=== PATIENT | male | born 1960 | race Caucasian/White ===

== ENCOUNTER 2017-02-13 16:09 | Emergency (ER) | END 2017-02-13 18:34 | disposition home or self-care (01) ==

== ENCOUNTER 2017-05-03 05:36 | Day surgery (SDC) | END 2017-05-03 14:35 | disposition home or self-care (01) ==

== ENCOUNTER 2017-12-15 08:23 | Emergency (ER) | END 2017-12-15 10:22 | disposition home or self-care (01) ==

== ENCOUNTER 2017-12-16 14:52 | Emergency (ER) | END 2017-12-16 20:02 | disposition short-term general hospital (02) ==

== ENCOUNTER 2018-06-18 09:44 | Observation (INO) | payer OTHER ==
[~2018-06-18] VITALS: Ht 167.6 cm; Wt 81.1 kg
[2018-06-18] VITALS (24 sets, daily range): BP systolic 130–168; BP diastolic 66–94; PULSE 65–100; RESP 11–20; Ht 167.6 cm; Wt 81.1 kg
[~2018-06-18 09:44] MED LIST: CEFAZOLIN 2 GM/50 ML (PMX) 50 ML IVPB ONE; LACTATED RINGER'S 1,000 ML IV SCH; METF500T3 PO; SEVOFLURANE 15 MIN ONE; SIMV40TA2 PO; TRAM50TA PO
[2018-06-18] MEDS ORDERED: METF100010 PO (11:03)
[2018-06-18] MEDS ORDERED: ATOR40TA68 PO (11:04)
[2018-06-18] MEDS ORDERED: INSU100I33 SC (11:05)
[2018-06-18] MEDS ORDERED: SURGIFOAM POWDER 1 GM KIT ONE ×2 (11:46→17:04)
[2018-06-18] MEDS ORDERED: THROMBIN (BOVINE) 5,000 UNIT VIAL TP ONE (11:55)
--- NOTE | 2018-06-18 13:06 | HPN ---
Date/Time of Note Date/Time of Note DATE: 06/18/18 TIME: 13:06 Interval H&P Admission Note Pt. seen H&P reviewed: No system changes MARIZOL AMIN MD June 18, 2018 13:06
--- NOTE | 2018-06-18 13:36 | PREAC ---
Date/Time of Note Date/Time of Note DATE: 06/18/18 TIME: 13:36 Anesthesia Eval and Record Evaluation Time Pre-Procedure Interview DATE: 06/18/18 TIME: 13:36 Age 58 Sex male NPO: 8 hrs Preoperative diagnosis Lumbar ddd Planned procedure Lumbar laminectomy Past Medical History Past Medical History: Includes Cardio: Dyslipidemia Endo: Diabetes GI: Obesity Surgery & Anesthesia Issues No known issue Meds Anticoagulation: No Beta Natasha within 24 hr: No Reason Beta Natasha not given: Pt. not on B-Natasha Reported Medications Insulin Glargine,Hum.rec.anlog (Basaglar Kwikpen U-100) 100 Unit/1 Ml Insuln.pen, 15 UNIT SC QHS, EA 06/18/18 Atorvastatin* (Atorvastatin*) 40 Mg Tablet, 40 MG PO QHS, #30 TAB 06/18/18 Metformin Hcl* (Metformin Hcl*) 1,000 Mg Tablet, 1000 MG PO WITH BREAKFAST DINNE, #60 TAB 06/18/18 Discontinued Reported Medications Metformin Hcl* (Metformin Hcl* ER) 500 Mg Tab.sr.24h, 500 MG PO DAILY, #30 TAB 12/16/17 Simvastatin* (Zocor*) 40 Mg Tablet, 40 MG PO QHS, #30 TAB 12/16/17 Tramadol Hcl* (Ultram*) 50 Mg Tablet, 50 MG PO Q12, TAB 05/03/17 Current Medications Lactated Ringer's 1,000 ml @ 0 mls/hr Q0M IV Last administered on 06/18/18at 11:51; Admin Dose 0 MLS/HR; Start 06/18/18 at 07:00; Stop 06/18/18 at 16:00 Meds reviewed: Yes Allergies Coded Allergies: No Known Allergy (Unverified , 06/18/18) Allergies Reviewed: Yes Labs/Studies Labs Reviewed: Reviewed by anesthesiologist Blood Bank Test 06/18/18 11:20 Antibody Screen NEGATIVE Blood Type O POSITIVE test: N/A Studies: ECG Pre-procedure Exam Last vitals Vital Signs Date Temp Pulse Resp B/P (MAP) Pulse Ox O2 O2 Flow FiO2 Time Delivery Rate 06/18/18 97.3 65 18 130/86 99 Room Air 11:53 (101) Airway: Adequate mouth opening, Adequate thyromental dist Mallampati: Mallampati II Teeth: Normal Lung: Normal Heart: Normal ASA Physical Status ASA physical status: 3 Emergency: None Planned Anesthetic General/MAC: ETT Pre-operative Attestations Prior to commencing anesthesia and surgery, the patient was re-evaluated, there was verification of: *The patient's identity *The results of appropriate recent lab work and preoperative vital signs *The above evaluation not changing prior to induction *Anesthetic plan, risk benefits, alternative and complications discussed with patient/family; questions answered; patient/family understands, accepts and wishes to proceed. CEZAR ANDREW June 18, 2018 13:36
[2018-06-18] MEDS ORDERED: BUPIVACAINE 0.5%/EPI (SDV) 30 ML INJ ONE (13:42)
[2018-06-18] MEDS ORDERED: POLYMYXIN/BACITRACIN 1L IRRIG ONE (16:26)
[2018-06-18] MEDS ORDERED: GELATIN SIZE 100 SPONGE ONE (16:26)
[2018-06-18] MEDS ORDERED: THROMBIN 5000 UNIT VIAL TOP ONE ×2 (16:34→17:12)
[2018-06-18] MEDS ORDERED: ALBUTEROL 0.083% (NEB) 2.5 MG/3 ML AMP HHN PRN (17:00)
[2018-06-18] MEDS ORDERED: DIPHENHYDRAMINE 50 MG INJ IV PRN (17:00)
[2018-06-18] MEDS ORDERED: MEPERIDINE 25 MG INJ IV PRN (17:00)
[2018-06-18] MEDS ORDERED: HYDROmorphONE 1 MG/5 ML IV SYRINGE IV PRN ×2 (17:00)
[2018-06-18] MEDS ORDERED: ONDANSETRON 4 MG INJ IV PRN ×2 (17:00→18:00)
[2018-06-18] MEDS ORDERED: FENTAnyl 50 MCG/ML VIAL IV PRN ×3 (17:00)
[2018-06-18] MEDS ORDERED: METOCLOPRAMIDE 10 MG INJ IV PRN (17:00)
[2018-06-18] MEDS ORDERED: SOD CHLORIDE 0.45% 1,000 ML IV SCH (17:54)
--- NOTE | 2018-06-18 17:54 | OPR ---
Date/Time of Note Date/Time of Note DATE: 06/18/18 TIME: 17:44 Operative Report Free Text/Dictation DATE OF OPERATION: 06/18/2018 PREOPERATIVE DIAGNOSES: 1.L4-5 bilateral spinal stenosis with right greater than left sided radiculopathy and neurogenic claudication 2. L4-5 central recurrent disk herniation with Right greater than left sided radiculopathy POSTOPERATIVE DIAGNOSES: 1.L4-5 bilateral spinal stenosis with right greater than left sided radiculopathy and neurogenic claudication 2. L4-5 central recurrent disk herniation with Right greater than left sided radiculopathy 3. Durotomy OPERATION PERFORMED: 1. Revision Bilateral L4-5 partial laminectomy, medial facetectomy, and fora minotomy 2. L4-5 revision microdiskectomy 3. Repair of durotomy SURGEON: Marizol Amin MD METAL TRIMMER: Sridhar Lovell MD ANESTHESIA: General endotracheal ESTIMATED BLOOD LOSS: 100 mL SURGICAL INDICATION: The patient is a 58 year-old male who presents with an increasing history of bilateral right greater than left lower extremity pain with weakness. The patient was unable to ambulate significant distances secondary to their pain and weakness. The patient had failed conservative treatment. Risks, benefits, and alternatives to a revision L4-5 decompressive procedure with diskectomy including but not exclusive of risks of bleeding, infection, nerve injury, cauda equina syndrome, iatrogenic instability, dural tear, myocardial infarction, stroke, pulmonary embolism were explained to the patient, and she wished to proceed. DESCRIPTION OF TECHNIQUE: The patient was identified in the preoperative area and taken to the operating room. Rapid induction of general endotracheal anesthesia was performed. Patient was given 2 g of cefazolin for prophylaxis. The patient was then placed in the prone position on the axis table with all bony prominences well padded. The back was prepped and draped in usual sterile manner. A time out was held. Using a spinal needle and intraoperative fluoroscopy, the L4-5 level was clearly identified. The skin was injected using 0.5% Marcaine with epinephrine. Longitudinal midline incision was then created using a 10 blade. Further dissection through soft tissue was performed using electrocautery down to the bilateral L4 spinous processes. Dissection was taken down over the lamina and over the facet joint capsule. A self-retaining retractor was applied. Again, intraoperative fluoroscopy confirmed the level. The microscope was brought into use for microdissection. The high-speed bur was used to thin the caudal aspect of the biltaeral L4 lamina. Kerrison rongeurs were then used to resect the lamina, the small portion of the medial facet and the bone overlying the foramen. Ligamentum flavum was also resected using the Kerrison rongeurs. Care was taken to protect the thecal sac throughout the decompressive procedure. The dura was scarred and adherent to the hypertrophic ligamentum. During the decompressive procedure and durotomy was identified meausring 0.5mm x 0.5mm on the zabrina-lateral aspect of the right dura. This was repaired lateral repaired using a 1 cm x 1 cm piece of duragen and tisseal . The adherent dura was meticulously dissected of the disk space and medial retracted to the left. The central extruded disk fragment was noted. This was incised using a 15 bladed. The disk was taken to a astable base and all extruded fragments were removed using a series of pituitaries. No further extruded pieces were noted at the end of the procedure. Palpation with a ball-tip probe did not reveal any further stenosis in the central, subarticular, or foraminal areas. The exiting L4 nerve roots and traversing L5 nerve roots were both directly visualized and noted to be decompressed. The wound was irrigated copiously using normal saline. Meticulous attention was paid toward hemostasis using bipolar cautery, FloSeal, Gelfoam and thrombin. Care was taken to remove all FloSeal and Gelfoam and thrombin prior to wound closure. At the end of the case a valsalva to 40 mmHg did not reveal any leak. The durotomy site was reinforced w/ a 1inch x 1 inch duragen and tisseal sealant. The fascia was then closed using 1 Vicryl in interrupted fashion. Subcutaneous tissue was closed using 2-0 Vicryl in interrupted fashion. Skin was closed using a 3-0 nylon in a horizontal mattress fashion.. The wound was dressed using sterile 4x4 gauze and Tegaderm. The patient was returned to the supine position. They were extubated immediately postoperatively and taken to the recovery room in stable condition. Procedure Date: June 18, 2018 Preoperative Diagnosis 1.L4-5 bilateral spinal stenosis with right greater than left sided radiculopathy and neurogenic claudication 2. L4-5 central recurrent disk herniation with Right greater than left sided radiculopathy Postoperative Diagnosis 1.L4-5 bilateral spinal stenosis with right greater than left sided radiculopathy and neurogenic claudication 2. L4-5 central recurrent disk herniation with Right greater than left sided radiculopathy Operation/Procedure Performed 1. Revision Bilateral L4-5 partial laminectomy, medial facetectomy, and foraminotomy 2. L4-5 revision microdiskectomy 3. Repair of durotomy Surgeon see signature line Maternity Nurse Sridhar Lovell MD Anesthesia Type: general Estimated Blood Loss: none Transfusion none Specimen L4-5 disk Grafts/Implants none Complications none Pt Condition Post Procedure: stable Disposition: PACU Procedure Description DESCRIPTION OF TECHNIQUE: The patient was identified in the preoperative area and taken to the operating room. Rapid induction of general endotracheal anesthesia was performed. Patient was given 2 g of cefazolin for prophylaxis. The patient was then placed in the prone position on the axis table with all bony prominences well padded. The back was prepped and draped in usual sterile manner. A time out was held. Using a spinal needle and intraoperative fluoroscopy, the L4-5 level was clearly identified. The skin was injected using 0.5% Marcaine with epinephrine. Longitudinal midline incision was then created using a 10 blade. Further dissection through soft tissue was performed using electrocautery down to the bilateral L4 spinous processes. Dissection was taken down over the lamina and over the facet joint capsule. A self-retaining retractor was applied. Again, intraoperative fluoroscopy confirmed the level. The microscope was brought into use for microdissection. The high-speed bur was used to thin the caudal aspect of the biltaeral L4 lamina. Kerrison rongeurs were then used to resect the lamina, the small portion of the medial facet and the bone overlying the foramen. Ligamentum flavum was also resected using the Kerrison rongeurs. Care was taken to protect the thecal sac throughout the decompressive procedure. The dura was scarred and adherent to the hypertrophic ligamentum. During the decompressive procedure and durotomy was identified meausring 0.5mm x 0.5mm on the zabrina-lateral aspect of the right dura. This was repaired lateral repaired using a 1 cm x 1 cm piece of duragen and tisseal . The adherent dura was meticulously dissected of the disk space and medial retracted to the left. The central extruded disk fragment was noted. This was incised using a 15 bladed. The disk was taken to a astable base and all extruded fragments were removed using a series of pituitaries. No further extruded pieces were noted at the end of the procedure. Palpation with a ball-tip probe did not reveal any further stenosis in the central, subarticular, or foraminal areas. The exiting L4 nerve roots and traversing L5 nerve roots were both directly visualized and noted to be decompressed. The wound was irrigated copiously using normal saline. Meticulous attention was paid toward hemostasis using bipolar cautery, FloSeal, Gelfoam and thrombin. Care was taken to remove all FloSeal and Gelfoam and thrombin prior to wound closure. At the end of the case a valsalva to 40 mmHg did not reveal any leak. The durotomy site was reinforced w/ a 1inch x 1 inch duragen and tisseal sealant. The fascia was then closed using 1 Vicryl in interrupted fashion. Subcutaneous tissue was closed using 2-0 Vicryl in interrupted fashion. Skin was closed using a 3-0 nylon in a horizontal mattress fashion.. The wound was dressed using sterile 4x4 gauze and Tegaderm. The patient was returned to the supine position. They were extubated immed iately postoperatively and taken to the recovery room in stable condition. MARIZOL AMIN MD June 18, 2018 17:54
[2018-06-18] MEDS ORDERED: PROCHLORPERAZINE 10 MG TAB PO PRN (18:00)
[2018-06-18] MEDS ORDERED: NALOXONE (0.4 MG/ML) INJ IV PRN (18:00)
[2018-06-18] MEDS ORDERED: AL HYDROX/MG HYDROX/SIMETH 30 ML CUP PO PRN (18:00)
[2018-06-18] MEDS ORDERED: HYDROmorphONE 0.2 MG/ML PCA IV SCH (18:00)
[2018-06-18] MEDS ORDERED: ACETAMINOPHEN 1000MG/100ML IV 100 ML IVPB ONE (18:00)
[2018-06-18] MEDS ORDERED: NACL 0.9% 3 ML SYG IV SCH (18:00)
[2018-06-18] MEDS ORDERED: HYDROCODONE/APAP (5/325) TAB PO PRN ×2 (18:00)
[2018-06-18] MEDS ORDERED: ACETAMINOPHEN 325 MG TAB PO PRN (18:00)
[2018-06-18] MEDS: CEFAZOLIN 1 GM/50 ML (PMX) 50 ML IVPB SCH ×2 (18:33→23:34)
[2018-06-18] MEDS: SOD CHLORIDE 0.9% 1,000 ML IV SCH (18:37)
[2018-06-18] MEDS: HYDROmorphONE 1 MG/5 ML IV SYRINGE IV PRN ×2 (18:51→19:01)
[2018-06-18] MEDS ORDERED: GLUCAGON 1 MG INJ IM PRN (19:00)
[2018-06-18] MEDS ORDERED: GLUCOSE GEL 15 GRAM TUBE BUCCAL PRN (19:00)
[2018-06-18] MEDS ORDERED: GLUCOSE GEL 15 GRAM TUBE PO PRN ×2 (19:00)
[2018-06-18] MEDS ORDERED: DEXTROSE 50% 50 ML SYRINGE IV PRN ×2 (19:00)
--- NOTE | 2018-06-18 19:12 | CONS ---
DATE OF ADMISSION: 06/18/2018 DATE OF CONSULTATION: 06/18/2018 TYPE OF CONSULTATION: Postoperative medical. Thank you very much for allowing me to evaluate the above patient who just underwent lumbar back surg vangie. HISTORICAL EVENTS: As you well know, this patient had low back pain in excess of 3 years, having had prior back surgery and a revision was thought necessary because of continued pain because of evidenc e of a recurrent large L4 to L5 central herniated nucleus pulposus and related radiculopathy. The coco linares was transferred just now from the OR to recovery and he is somnolent. PAST MEDICAL HISTORY: Includes diabetes, hyperlipidemia, depression, chronic back pain as well as ca taracts with vitamin D deficiency. FAMILY HISTORY: Positive for diabetes and hypertension. MEDICATIONS PRIOR TO ADMISSION: 1. Sertraline 50 mg per day. 2. Aspirin 81 mg per day. 3. Meloxicam 15 mg per day. 4. Metformin 1000 mg b.i.d. 5. Atorvastatin 40 mg per day. 6. Gabapentin 300 mg t.i.d. ALLERGIES: NONE. PHYSICAL EXAMINATION: GENERAL: Comfortable appearing male in no acute distress. VITAL SIGNS: BP 118/78, pulse 72, respirations were 18. He was afebrile. HEENT: Eyes: Extraocular muscles were full. NECK: No JVD. LUNGS: Clear. HEART: Rhythm regular. ABDOMEN: Nontender, nondistended. EXTREMITIES: No extremity edema. IMPRESSION: 1. Stable postop lumbar back surgery. 2. History of diabetes. We will follow sugars every 6 hours and cover with short-acting insulin. 3. Hyperlipidemia. We will resume statin. 4. We will follow daily and observe symptoms of thromboembolic disease. Dictated By: NATALI CANALES/BLAYNE Conf#: [id number] DID#: [id number] CC: MARIZOL AMIN MD;*EndCC*
[2018-06-18] MEDS ORDERED: LABETALOL HCL 20MG INJ IV ONE (19:30)
[2018-06-18] MEDS: ATORVASTATIN 40 MG TAB PO SCH (21:00)
[2018-06-19] MEDS ORDERED: SUCCINYLCHOLINE CHLORIDE 100 MG/5 ML SYG IV ONE (00:10)
[2018-06-19] MEDS ORDERED: LIDOCAINE 100 MG SYRINGE ONE (00:10)
[2018-06-19] MEDS ORDERED: CEFAZOLIN 1 GM INJ ONE (00:10)
[2018-06-19] MEDS ORDERED: ROCURONIUM 50 MG INJ ONE (00:10)
[2018-06-19] MEDS ORDERED: SUGAMMADEX SODIUM 200 MG/2 ML VIAL IV ONE (00:10)
[2018-06-19] MEDS ORDERED: FENTAnyl 50 MCG/ML VIAL ONE ×2 (00:10)
[2018-06-19] MEDS ORDERED: PROPOFOL 20 ML ONE (00:10)
[2018-06-19 00:36] VITALS: BP 139/65; PULSE 86; RESP 17
[2018-06-19 04:20] VITALS: BP 142/74; PULSE 86; RESP 18
[2018-06-19] MEDS: CEFAZOLIN 1 GM/50 ML (PMX) 50 ML IVPB SCH ×2 (05:29→12:46)
[2018-06-19] MEDS: SOD CHLORIDE 0.9% 1,000 ML IV SCH ×3 (05:31→21:46)
[2018-06-19 08:00] VITALS: BP 130/63; PULSE 87; RESP 18
[2018-06-19] MEDS ORDERED: HYDROmorphONE 0.2 MG/ML PCA IV SCH (08:00)
--- NOTE | 2018-06-19 08:32 | PAC ---
Date/Time of Note Date/Time of Note DATE: 06/19/18 TIME: 08:32 Post-Anesthesia Notes Post-Anesthesia Note Last documented vital signs Vital Signs Date Temp Pulse Resp B/P (MAP) Pulse Ox O2 O2 Flow FiO2 Time Delivery Rate 06/19/18 98.0 87 18 130/63 95 Room Air 08:00 (85) 06/18/18 8.0 18:04 Activity: WNL Respiratory function: WNL Cardiovascular function: WNL Mental status: Baseline Pain reasonably controlled: Yes Hydration appropriate: Yes Nausea/Vomiting absent: Yes CEZAR ANDREW June 19, 2018 08:32
[2018-06-19] MEDS: metFORMIN 500 MG TAB PO SCH ×2 (08:38→18:05)
[2018-06-19] MEDS: DOCUSATE SODIUM 100 MG CAP PO SCH ×2 (08:38→20:08)
[2018-06-19] MEDS: INSULIN ASPART [NOVOLOG] 3 ML PEN SC SCH ×3 (08:50→18:05)
--- NOTE | 2018-06-19 09:48 | CONS ---
Assessment/Plan Assessment/Plan Assessment/Plan (Daily) 1. Doing well post op lumbar back surgery. 2. HERNANDEZ related to dural tear ? 3. DM, control is excellent 4. Low Mag, will replete Consultation Date/Type/Reason Admit Date/Time June 18, 2018 at 19:19 Initial Consult Date Date/Time of Note DATE: 06/19/18 TIME: 09:47 Detailed Summary Respiratory: No cough, No shortness of breath Cardiovascular: No chest pain Gastrointestinal: no complaints Genitourinary: other (sams in place) Musculoskeletal: back pain (mod) Neurologic: headache, other Exam/Review of Systems Exam Vitals Vital Signs Date Temp Pulse Resp B/P (MAP) Pulse Ox O2 O2 Flow FiO2 Time Delivery Rate 06/19/18 98.0 87 18 130/63 95 Room Air 08:00 (85) 06/18/18 8.0 18:04 Intake and Output 06/18/18 06/18/18 06/19/18 1515:00 23:00 07:00 IntakeIntake Total 1800 ml 150 ml 50 ml OutputOutput Total 580 ml 1200 ml BalanceBalance 1800 ml -430 ml -1150 ml Neck: No jvd Respiratory: clear to auscultation Cardiovascular: regular rate and rhythm Gastrointestinal: soft Neurological: No focal weakness Results Result Diagram: 06/19/18 0453 06/19/18 0453 Results 24hrs Laboratory Tests Test 06/18/18 11:02 06/18/18 18:09 06/19/18 04:53 06/19/18 07:21 Bedside Glucose 164 197 Hemoglobin 11.9 L Hematocrit 36.0 L Sodium Level 139 Potassium Level 4.2 Chloride Level 107 Carbon Dioxide 23 Level Anion Gap 9 Blood Urea 11 Nitrogen Creatinine 0.65 Est Glomerular > 60 Filtrat Rate mL/min Glucose Level 215 Calcium Level 8.2 L Phosphorus Level 4.2 Magnesium Level 1.4 L Lab Scanned Report REFERENCE LAB Test 06/19/18 08:37 Bedside Glucose 178 Medications Medication Current Medications Acetaminophen/ Hydrocodone Bitart ([place] (5/325)) 1 tab Q4H PRN PO .PAIN 1-5; Start 06/18/18 at 18:00 Acetaminophen/ Hydrocodone Bitart ([place] (5/325)) 2 tab Q4H PRN PO .PAIN 6-10; Start 06/18/18 at 18:00 Cefazolin Sodium 50 ml @ 100 mls/hr Q6 IVPB Last administered on 06/19/18at 05:29; Admin Dose 100 MLS/HR; Start 06/18/18 at 18:00; Stop 06/19/18 at 12:29 Prochlorperazine (Compazine) 10 mg Q4H PRN PO NAUSEA/VOMITING; Start 06/18/18 at 18:00 Ondansetron HCl (Zofran Inj) 4 mg Q6H PRN IV NAUSEA/VOMITING; Start 06/18/18 at 18:00 Al Hydrox/Mg Hydrox/Simethicone (Mag-Al Plus) 15 ml Q4H PRN PO .CONSTIPATION; Start 06/18/18 at 18:00 Docusate Sodium (Colace) 100 mg BID PO Last administered on 06/19/18at 08:38; Admin Dose 100 MG; Start 06/19/18 at 09:00 Acetaminophen (Tylenol Tab) 650 mg Q4H PRN PO TEMP GREATER THAN 101F OR HERNANDEZ Last administered on 06/19/18at 08:36; Admin Dose 650 MG; Start 06/18/18 at 18:00 IV Flush (NS 3 ml) 3 ml PER PROTOCOL IV ; Start 06/18/18 at 18:00 Naloxone HCl (Narcan) 0.2 mg Q2M PRN IV RR 8 BREATHS/MIN OR LESS; Start 06/18/18 at 18:00 Sodium Chloride 1,000 ml @ 100 mls/hr Q10H IV Last administered on 06/19/18at 05:31; Admin Dose 100 MLS/HR; Start 06/18/18 at 18:30 Atorvastatin Calcium (Lipitor) 40 mg QHS PO ; Start 06/18/18 at 21:00 Metformin HCl (Glucophage) 1,000 mg WITH BREAKFAST DINNE PO Last administered on 06/19/18at 08:38; Admin Dose 1,000 MG; Start 06/19/18 at 07:50 Insulin Aspart (Novolog Insulin Pen) NOVOLOG *MILD* ALGORITHM AC MEALS SC Last administered on 06/19/18at 08:50; Admin Dose 1 UNIT; Start 06/19/18 at 07:00 Miscellaneous Information 1 ea NOTE XX ; Start 06/18/18 at 19:00 Glucose (Glutose) 15 gm Q15M PRN PO DECREASED GLUCOSE; Start 06/18/18 at 19:00 Glucose (Glutose) 22.5 gm Q15M PRN PO DECREASED GLUCOSE; Start 06/18/18 at 19:00 Dextrose (D50w Syringe) 25 ml Q15M PRN IV DECREASED GLUCOSE; Start 06/18/18 at 19:00 Dextrose (D50w Syringe) 50 ml Q15M PRN IV DECREASED GLUCOSE; Start 06/18/18 at 19:00 Glucagon (Glucagen) 1 mg Q15M PRN IM DECREASED GLUCOSE; Start 06/18/18 at 19:00 Glucose (Glutose) 15 gm Q15M PRN BUCCAL DECREASED GLUCOSE; Start 06/18/18 at 19:00 Hydromorphone HCl (Dilaudid HOSPICE REGISTERED NURSE) Q4PCA IV Last administered on 06/19/18at 08:51; Admin Dose 6 MG; Start 06/19/18 at 08:00 NATALI LEONG MD June 19, 2018 09:48
[2018-06-19] MEDS ORDERED: MAGNESIUM SULFATE 3 GM in DEXTROSE 5% 100 ML IVPB ONE (11:00)
--- NOTE | 2018-06-19 12:24 | CONS ---
Consultation Date/Type/Reason Admit Date/Time June 18, 2018 at 19:19 Initial Consult Date Date/Time of Note DATE: 06/19/18 TIME: 12:21 24 HR Interval Summary Free Text/Dictation S: 58 yo Male POD#1 s/p L4-5 decompression w/ diskectomy complicated by dural tear s/p repair. No acute events over nigh. Pain controlled w/ RECORD SYSTEMS ANALYST. O: Vital Signs Date Temp Pulse Resp B/P (MAP) Pulse Ox O2 O2 Flow FiO2 Time Delivery Rate 06/19/18 98.0 87 18 130/63 95 Room Air 08:00 (85) 06/18/18 8.0 18:04 Gen: AAOx3, NAD Spine: 5/5 b/l TA/GS/EHL, +Seno[place] L3-S1. Dressing C/D/I A/P:58 yo Male POD#1 s/p L4-5 decompression w/ diskectomy complicated by dural tear s/p repair. 1. d/c RECORD SYSTEMS ANALYST 2. start PO [place] 3. OOB w/ PT today at 2 pm 4. D/C sams if cleared by PT 5. Possible d/c home tomorrow 6. appreciate med recs Exam/Review of Systems Exam Vitals Vital Signs Date Temp Pulse Resp B/P (MAP) Pulse Ox O2 O2 Flow FiO2 Time Delivery Rate 06/19/18 98.0 87 18 130/63 95 Room Air 08:00 (85) 06/18/18 8.0 18:04 Intake and Output 06/18/18 06/18/18 06/19/18 1414:59 22:59 06:59 IntakeIntake Total 1800 ml 150 ml 50 ml OutputOutput Total 580 ml 1200 ml BalanceBalance 1800 ml -430 ml -1150 ml Results Result Diagram: 06/19/18 0453 06/19/18 0453 Results 24hrs Laboratory Tests Test 06/18/18 18:09 06/19/18 04:53 06/19/18 07:21 06/19/18 08:37 Bedside Glucose 197 178 Hemoglobin 11.9 L Hematocrit 36.0 L Sodium Level 139 Potassium Level 4.2 Chloride Level 107 Carbon Dioxide 23 Level Anion Gap 9 Blood Urea 11 Nitrogen Creatinine 0.65 Est Glomerular > 60 Filtrat Rate mL/min Glucose Level 215 Calcium Level 8.2 L Phosphorus Level 4.2 Magnesium Level 1.4 L Lab Scanned Report REFERENCE LAB Medications Medication Current Medications Acetaminophen/ Hydrocodone Bitart ([place] (5/325)) 1 tab Q4H PRN PO .PAIN 1-5; Start 06/18/18 at 18:00 Acetaminophen/ Hydrocodone Bitart ([place] (5/325)) 2 tab Q4H PRN PO .PAIN 6-10; Start 06/18/18 at 18:00 Cefazolin Sodium 50 ml @ 100 mls/hr Q6 IVPB Last administered on 06/19/18at 05:29; Admin Dose 100 MLS/HR; Start 06/18/18 at 18:00; Stop 06/19/18 at 12:29 Prochlorperazine (Compazine) 10 mg Q4H PRN PO NAUSEA/VOMITING; Start 06/18/18 at 18:00 Ondansetron HCl (Zofran Inj) 4 mg Q6H PRN IV NAUSEA/VOMITING Last administered on 06/19/18at 09:57; Admin Dose 4 MG; Start 06/18/18 at 18:00 Al Hydrox/Mg Hydrox/Simethicone (Mag-Al Plus) 15 ml Q4H PRN PO .CONSTIPATION; Start 06/18/18 at 18:00 Docusate Sodium (Colace) 100 mg BID PO Last administered on 06/19/18at 08:38; Admin Dose 100 MG; Start 06/19/18 at 09:00 Acetaminophen (Tylenol Tab) 650 mg Q4H PRN PO TEMP GREATER THAN 101F OR HERNANDEZ Last administered on 06/19/18at 08:36; Admin Dose 650 MG; Start 06/18/18 at 18:00 IV Flush (NS 3 ml) 3 ml PER PROTOCOL IV ; Start 06/18/18 at 18:00 Naloxone HCl (Narcan) 0.2 mg Q2M PRN IV RR 8 BREATHS/MIN OR LESS; Start 06/18/18 at 18:00 Sodium Chloride 1,000 ml @ 75 mls/hr [id number] IV Last administered on 06/19/18at 05:31; Admin Dose 100 MLS/HR; Start 06/18/18 at 18:30 Atorvastatin Calcium (Lipitor) 40 mg QHS PO ; Start 06/18/18 at 21:00 Metformin HCl (Glucophage) 1,000 mg WITH BREAKFAST DINNE PO Last administered on 06/19/18at 08:38; Admin Dose 1,000 MG; Start 06/19/18 at 07:50 Insulin Aspart (Novolog Insulin Pen) NOVOLOG *MILD* ALGORITHM AC MEALS SC Last administered on 06/19/18at 08:50; Admin Dose 1 UNIT; Start 06/19/18 at 07:00 Miscellaneous Information 1 ea NOTE XX ; Start 06/18/18 at 19:00 Glucose (Glutose) 15 gm Q15M PRN PO DECREASED GLUCOSE; Start 06/18/18 at 19:00 Glucose (Glutose) 22.5 gm Q15M PRN PO DECREASED GLUCOSE; Start 06/18/18 at 19:00 Dextrose (D50w Syringe) 25 ml Q15M PRN IV DECREASED GLUCOSE; Start 06/18/18 at 19:00 Dextrose (D50w Syringe) 50 ml Q15M PRN IV DECREASED GLUCOSE; Start 06/18/18 at 19:00 Glucagon (Glucagen) 1 mg Q15M PRN IM DECREASED GLUCOSE; Start 06/18/18 at 19:00 Glucose (Glutose) 15 gm Q15M PRN BUCCAL DECREASED GLUCOSE; Start 06/18/18 at 19:00 Hydromorphone HCl (Dilaudid RECORD SYSTEMS ANALYST) Q4PCA IV Last administered on 06/19/18at 08:51; Admin Dose 6 MG; Start 06/19/18 at 08:00 Magnesium Sulfate 3 gm/Dextrose 106 ml @ 35.333 mls/ hr ONCE ONCE IVPB ; Start 06/19/18 at 11:00; Stop 06/19/18 at 13:59 MARIZOL AMIN MD June 19, 2018 12:24
--- NOTE | 2018-06-19 12:25 | PDOCDIS ---
Discharge Instructions CONDITION [id number] Patient Condition: [id number] Good HOME CARE INSTRUCTIONS: [id number] Diet Instructions: [id number] Regular ACTIVITY: [id number] Activity Restrictions: [id number] Avoid heavy lifting [id number] Bathing Restrictions: [id number] Shower FOLLOW UP/APPOINTMENTS Follow-up Plan Follow-up w/ Dr. Amin in 2 weeks MARIZOL AMIN MD June 19, 2018 12:25
[2018-06-19] MEDS ORDERED: CAFFEINE 200 MG TABLET PO PRN (13:30)
[2018-06-19 14:38] VITALS: BP 142/71; PULSE 80; RESP 18
[2018-06-19] MEDS ORDERED: ACETAMINOPHEN 1000MG/100ML IV 100 ML IVPB ONE (17:30)
[2018-06-19 19:18] VITALS: BP 147/70; PULSE 65; PULSE 86; RESP 18
[2018-06-19] MEDS ORDERED: CEFAZOLIN 2 GM/50 ML (PMX) 50 ML IVPB ONE (19:30)
[2018-06-19] MEDS: ATORVASTATIN 40 MG TAB PO SCH (20:08)
[2018-06-20 01:20] VITALS: BP 150/69; PULSE 68; RESP 18
[2018-06-20] MEDS: SOD CHLORIDE 0.9% 1,000 ML IV SCH ×2 (04:42→10:46)
[2018-06-20 07:05] VITALS: BP 166/84; PULSE 97; RESP 18
--- NOTE | 2018-06-20 08:12 | CONS ---
Assessment/Plan Assessment/Plan Assessment/Plan (Daily) 1. Doing well post op lumbar back surgery 2. HERNANDEZ has resolved 3. BP sl inc, will start catapres 4. Sl inc wbc, u/a and cult ordered, sams should be removed today Consultation Date/Type/Reason Admit Date/Time June 18, 2018 at 19:19 Initial Consult Date Date/Time of Note DATE: 06/20/18 TIME: 08:10 Detailed Summary Respiratory: No cough, No shortness of breath Cardiovascular: No chest pain, No orthopenea Gastrointestinal: other (bloated without n or v) Genitourinary: other (sams in place) Musculoskeletal: back pain (mild) Neurologic: No headache Exam/Review of Systems Exam Vitals Vital Signs Date Temp Pulse Resp B/P (MAP) Pulse Ox O2 O2 Flow FiO2 Time Delivery Rate 06/20/18 98.4 97 18 166/84 95 Room Air 07:05 (111) 06/18/18 8.0 18:04 Intake and Output 06/19/18 06/19/18 06/20/18 1515:00 23:00 07:00 IntakeIntake Total 490 ml 2746 ml 2200 ml OutputOutput Total 3400 ml 3500 ml BalanceBalance 490 ml -654 ml -1300 ml Neck: No jvd Respiratory: clear to auscultation Cardiovascular: regular rate and rhythm Gastrointestinal: soft Extremities: No calf tenderness, No edema Results Result Diagram: 06/20/18 0437 06/20/18 0437 Results 24hrs Laboratory Tests Test 06/19/18 08:37 06/19/18 12:58 06/19/18 17:56 06/20/18 01:54 Bedside Glucose 178 216 172 175 Test 06/20/18 04:37 White Blood Count 14.7 H Red Blood Count 4.01 L Hemoglobin 12.1 L Hematocrit 36.8 L Mean Corpuscular 91.8 Volume Mean Corpuscular 30.2 Hemoglobin Mean Corpuscular 32.9 Hemoglobin Concent Red Cell 13.1 Distribution Width Platelet Count 190 Mean Platelet Volume 11.1 H Immature 0.500 H Granulocytes % Neutrophils % 79.4 H Lymphocytes % 11.4 L Monocytes % 8.3 Eosinophils % 0.1 Basophils % 0.3 Nucleated Red Blood 0.0 Cells % Immature 0.070 H Granulocytes # Neutrophils # 11.7 H Lymphocytes # 1.7 Monocytes # 1.2 H Eosinophils # 0.0 Basophils # 0.0 Nucleated Red Blood 0.0 Cells # Sodium Level 139 Potassium Level 3.9 Chloride Level 102 Carbon Dioxide Level 29 Anion Gap 8 Blood Urea Nitrogen 8 Creatinine 0.75 Est Glomerular > 60 Filtrat Rate mL/min Glucose Level 239 H Calcium Level 8.8 Phosphorus Level 1.6 #L Magnesium Level 2.2 Medications Medication Current Medications Acetaminophen/ Hydrocodone Bitart ([place] (5/325)) 1 tab Q4H PRN PO .PAIN 1-5 Last administered on 06/19/18 15:26; Admin Dose 1 TAB; Start 06/18/18 at 18:00 Acetaminophen/ Hydrocodone Bitart ([place] (5/325)) 2 tab Q4H PRN PO .PAIN 6-10; Start 06/18/18 at 18:00 Prochlorperazine (Compazine) 10 mg Q4H PRN PO NAUSEA/VOMITING; Start 06/18/18 at 18:00 Ondansetron HCl (Zofran Inj) 4 mg Q6H PRN IV NAUSEA/VOMITING Last administered on 06/19/18 09:57; Admin Dose 4 MG; Start 06/18/18 at 18:00 Al Hydrox/Mg Hydrox/Simethicone (Mag-Al Plus) 15 ml Q4H PRN PO .CONSTIPATION Last administered on 06/20/18 02:16; Admin Dose 15 ML; Start 06/18/18 at 18:00 Docusate Sodium (Colace) 100 mg BID PO Last administered on 06/19/18 20:08; Admin Dose 100 MG; Start 06/19/18 at 09:00 Acetaminophen (Tylenol Tab) 650 mg Q4H PRN PO TEMP GREATER THAN 101F OR HERNANDEZ Last administered on 06/19/18 08:36; Admin Dose 650 MG; Start 06/18/18 at 18:00 IV Flush (NS 3 ml) 3 ml PER PROTOCOL IV ; Start 06/18/18 at 18:00 Naloxone HCl (Narcan) 0.2 mg Q2M PRN IV RR 8 BREATHS/MIN OR LESS; Start 06/18/18 at 18:00 Sodium Chloride 1,000 ml @ 150 mls/hr Q6H40M IV Last administered on 06/20/18 04:42; Admin Dose 150 MLS/HR; Start 06/18/18 at 18:30 Atorvastatin Calcium (Lipitor) 40 mg QHS PO Last administered on 06/19/18at 20:08; Admin Dose 40 MG; Start 06/18/18 at 21:00 Metformin HCl (Glucophage) 1,000 mg WITH BREAKFAST DINNE PO Last administered on 06/19/18at 18:05; Admin Dose 1,000 MG; Start 06/19/18 at 07:50 Insulin Aspart (Novolog Insulin Pen) NOVOLOG *MILD* ALGORITHM AC MEALS SC Last administered on 06/19/18at 18:05; Admin Dose 1 UNIT; Start 06/19/18 at 07:00 Miscellaneous Information 1 ea NOTE XX ; Start 06/18/18 at 19:00 Glucose (Glutose) 15 gm Q15M PRN PO DECREASED GLUCOSE; Start 06/18/18 at 19:00 Glucose (Glutose) 22.5 gm Q15M PRN PO DECREASED GLUCOSE; Start 06/18/18 at 19:00 Dextrose (D50w Syringe) 25 ml Q15M PRN IV DECREASED GLUCOSE; Start 06/18/18 at 19:00 Dextrose (D50w Syringe) 50 ml Q15M PRN IV DECREASED GLUCOSE; Start 06/18/18 at 19:00 Glucagon (Glucagen) 1 mg Q15M PRN IM DECREASED GLUCOSE; Start 06/18/18 at 19:00 Glucose (Glutose) 15 gm Q15M PRN BUCCAL DECREASED GLUCOSE; Start 06/18/18 at 19:00 Caffeine (Alertness Aid) 200 mg DAILY PRN PO HEADACHE Last administered on 06/19/18at 18:05; Admin Dose 200 MG; Start 06/19/18 at 13:30 NATALI LEONG MD June 20, 2018 08:12
[2018-06-20] MEDS ORDERED: POTASSIUM PHOSPHATE 20 MEQ in SOD CHLORIDE 0.9% 250 ML IVPB ONE (09:00)
[2018-06-20] MEDS: INSULIN ASPART [NOVOLOG] 3 ML PEN SC SCH ×2 (09:36→13:57)
[2018-06-20] MEDS: DOCUSATE SODIUM 100 MG CAP PO SCH (09:37)
[2018-06-20 09:40] VITALS: BP 133/80; PULSE 97; RESP 20
[2018-06-20] MEDS: metFORMIN 500 MG TAB PO SCH (09:44)
== END 2018-06-20 16:50 | disposition home or self-care (01) ==
LOC: SDS 09:44 → EDSTATUS 12:30 → MS1 19:19 → SDS 19:19 → MS1 20:22
PROVIDERS: ADMIT Orthopaedic Surgery; ATTEND Orthopaedic Surgery
DX: M48.062 Spinal stenosis, lumbar region with neurogenic claudication (principal); M51.16 Intervertebral disc disorders with radiculopathy, lumbar region; E78.5 Hyperlipidemia, unspecified; E11.9 Type 2 diabetes mellitus without complications; E66.9 Obesity, unspecified; Z68.28 Body mass index [BMI] 28.0-28.9, adult; Z79.82 Long term (current) use of aspirin; Z79.84 Long term (current) use of oral hypoglycemic drugs
CPT/HCPCS: 63030; 72100; 80048; 81001; 82962; 83735; 84100; 85014; 85018; 85025; 86850; 86900; 86901; 87086; 88304; 97116; 97161; J0131; J0690; J1170; J1815; J2001; J2175; J2405; J3010; J3475; J7030; J7050; Z7500; Z7512; Z7610; G0378

== ENCOUNTER 2018-09-07 05:54 | Day surgery (SDC) | payer OTHER ==
[~2018-09-07] VITALS: Ht 170.2 cm; Wt 81.2 kg
[~2018-09-07 05:54] MED LIST changes: +ASPI-817 PO; +ATOR40TA68 PO; -CEFAZOLIN 2 GM/50 ML (PMX) 50 ML IVPB ONE; +INSU100I12 SQ; +INSU100I33 SC; -LACTATED RINGER'S 1,000 ML IV SCH; +METF100010 PO; -METF500T3 PO; +PANT40TA3 PO; -SEVOFLURANE 15 MIN ONE; -SIMV40TA2 PO; -TRAM50TA PO
[2018-09-07 06:59] VITALS: Ht 170.2 cm; Wt 81.2 kg
[2018-09-07 07:20] VITALS: BP 135/78; PULSE 52; RESP 20
[2018-09-07] MEDS ORDERED: PROPOFOL 20 ML ONE (07:46)
[2018-09-07] MEDS ORDERED: LIDOCAINE 2% (SDV) 5 ML INJ ONE (07:46)
[2018-09-07] MEDS ORDERED: MIDAZOLAM 1 MG/ML 2 ML INJ ONE (07:46)
--- NOTE | 2018-09-07 07:51 | PREAC ---
Date/Time of Note Date/Time of Note DATE: 09/07/18 TIME: 07:47 Anesthesia Eval and Record Evaluation Time Pre-Procedure Interview DATE: 09/07/18 TIME: 07:47 Age 58 Sex male NPO: 8 hrs Preoperative diagnosis colonoscopy Planned procedure hx of colon polyps Past Medical History Past Medical History: Includes Cardio: Dyslipidemia Endo: Diabetes Surgery & Anesthesia Issues No known issue Meds Anticoagulation: No Beta Natasha within 24 hr: No Reason Beta Natasha not given: Pt. not on B-Natasha Reported Medications Insulin Glargine,Hum.rec.anlog (Basaglar Kwikpen U-100) 100 Unit/1 Ml Insuln.pen, 15 UNIT SC QHS, EA 06/18/18 Atorvastatin* (Atorvastatin*) 40 Mg Tablet, 40 MG PO QHS, #30 TAB 06/18/18 Metformin Hcl* (Metformin Hcl*) 1,000 Mg Tablet, 1000 MG PO WITH BREAKFAST DINNE, #60 TAB 06/18/18 Meds reviewed: Yes Allergies Coded Allergies: No Known Allergy (Unverified , 06/18/18) Allergies Reviewed: Yes Labs/Studies Labs Reviewed: Reviewed by anesthesiologist test: N/A Pre-procedure Exam Last vitals Vital Signs Date Temp Pulse Resp B/P (MAP) Pulse Ox O2 O2 Flow FiO2 Time Delivery Rate 09/07/18 97.6 52 20 135/78 100 Room Air 07:20 (97) Airway: Adequate mouth opening, Adequate thyromental dist Mallampati: Mallampati III Teeth: Normal Lung: Normal Heart: Normal ASA Physical Status ASA physical status: 3 Emergency: None Pre-operative Attestations Prior to commencing anesthesia and surgery, the patient was re-evaluated, there was verification of: *The patient's identity *The results of appropriate recent lab work and preoperative vital signs *The above evaluation not changing prior to induction *Anesthetic plan, risk benefits, alternative and complications discussed with patient/family; questions answered; patient/family understands, accepts and wishes to proceed. NELI SHI DO Sep 07, 2018 07:51
--- NOTE | 2018-09-07 08:09 | PAC ---
Date/Time of Note Date/Time of Note DATE: 09/07/18 TIME: 08:09 Post-Anesthesia Notes Post-Anesthesia Note Last documented vital signs Vital Signs Date Temp Pulse Resp B/P (MAP) Pulse Ox O2 O2 Flow FiO2 Time Delivery Rate 09/07/18 97.6 52 20 135/78 100 Room Air 07:20 (97) Activity: WNL Respiratory function: WNL Cardiovascular function: WNL Mental status: Baseline Pain reasonably controlled: Yes Hydration appropriate: Yes Nausea/Vomiting absent: Yes NELI SHI DO Sep 07, 2018 08:09
[2018-09-07 09:04] VITALS: BP 136/83; RESP 12
== END 2018-09-07 12:58 | disposition home or self-care (01) ==
LOC: GIL 05:54
PROVIDERS: ATTEND Internal Medicine Gastroenterology
DX: Z86.010 Personal history of colon polyps (principal); K64.8 Other hemorrhoids; K57.30 Diverticulosis of large intestine without perforation or abscess without bleeding; E11.9 Type 2 diabetes mellitus without complications; E78.5 Hyperlipidemia, unspecified; Z79.4 Long term (current) use of insulin
CPT/HCPCS: 45378; 82962; 88305; J2250; Z7610

== ENCOUNTER 2018-09-12 19:14 | Inpatient (IN) | payer OTHER ==
[~2018-09-12] VITALS: Ht 170.2 cm; Wt 81.8 kg
--- NOTE | 2018-09-12 19:48 | ERD ---
ER Documentation Chief Complaint Chief Complaint dizziness x 1 day HPI The patient is a 58-year-old male, presenting to the ER because of acute dizziness that began around 12 AM today, denies similar symptoms previously, denies syncope, near syncope, vertigo, facial pain, neck pain. He also complains of substernal chest pain and epigastric abdominal pain that began around 12 AM. He denies pain with vomiting/radiation/exertion/diaphoresis, dyspnea, vomiting, dysuria, diarrhea. He complains of black stool today; however he has been taking some Pepto-Bismol as well Medical history: Diabetes mellitus, dyslipidemia Past surgical history: Back surgery. He had colonoscopy a week ago that was unremarkable according to him ROS All systems reviewed and are negative except as per history of present illness. Medications Home Meds Reported Medications Insulin Lispro (Humalog Kwikpen U-100) 100 Unit/1 Ml Insuln.pen, 10 UNIT SQ WITH MEALS, EA 09/12/18 Aspirin* (Aspirin* EC) 81 Mg Tablet.dr, 81 MG PO DAILY, TAB 09/12/18 Insulin Glargine,Hum.rec.anlog (Basaglar Kwikpen U-100) 100 Unit/1 Ml Insuln.pen, 20 UNIT SC QHS, EA 06/18/18 Atorvastatin* (Atorvastatin*) 40 Mg Tablet, 40 MG PO QHS, #30 TAB 06/18/18 Metformin Hcl* (Metformin Hcl*) 1,000 Mg Tablet, 1000 MG PO WITH BREAKFAST DINNE, #60 TAB 06/18/18 Allergies Allergies: Coded Allergies: No Known Allergy (Unverified , 09/12/18) PMhx/Soc History of Surgery: Yes (BACK SURGERY SURGERY 3 MOS. AGO) Anesthesia Reaction: No Hx Neurological Disorder: Yes (BACK DISC) Hx Respiratory Disorders: No Hx Cardiac Disorders: Yes (HIGH CHOLESTEROL) Hx Psychiatric Problems: No Hx Miscellaneous Medical Probl: Yes Hx Alcohol Use: Yes (OCCASIONAL) Hx Substance Use: No Hx Tobacco Use: No Smoking Status: Never smoker Physical Exam Vitals Vital Signs Date Temp Pulse Resp B/P (MAP) Pulse Ox O2 O2 Flow FiO2 Time Delivery Rate 09/12/18 99 18 114/84 100 Room Air 19:45 (94) 09/12/18 98.4 124 20 132/83 100 19:20 (99) Physical Exam Const: No acute distress. Head: Atraumatic. Eyes: Normal Conjunctiva. ENT: Normal External Ears, Nose and Mouth. Neck: Full range of motion. No meningismus. Resp: Clear to auscultation bilaterally. Cardio: Regular tachycardic Abd: Soft, non distended, normal bowel sounds, non tender. Skin: No petechiae or rashes. Back: No midline or flank tenderness. Ext: No cyanosis, or edema. Neur: Awake and alert. No focal deficit Psych: Normal Mood and Affect. Result Diagram: 09/12/18202809/12/182028 Results 24 hrs Laboratory Tests Test 09/12/18 20:29 09/12/18 20:39 White Blood Count 11.3 10^3/ul Red Blood Count 3.55 10^6/ul Hemoglobin 10.7 g/dl Hematocrit 32.4 % Mean Corpuscular Volume 91.3 fl Mean Corpuscular Hemoglobin 30.1 pg Mean Corpuscular Hemoglobin Concent 33.0 g/dl Red Cell Distribution Width 13.1 % Platelet Count 192 10^3/UL Mean Platelet Volume 11.1 fl Immature Granulocytes % 0.400 % Neutrophils % 64.1 % Lymphocytes % 27.0 % Monocytes % 7.3 % Eosinophils % 0.8 % Basophils % 0.4 % Nucleated Red Blood Cells % 0.0 /100WBC Immature Granulocytes # 0.040 10^3/ul Neutrophils # 7.3 10^3/ul Lymphocytes # 3.1 10^3/ul Monocytes # 0.8 10^3/ul Eosinophils # 0.1 10^3/ul Basophils # 0.0 10^3/ul Nucleated Red Blood Cells # 0.0 10^3/ul Sodium Level 139 mmol/L Potassium Level 4.2 mmol/L Chloride Level 105 mmol/L Carbon Dioxide Level 22 mmol/L Anion Gap 12 Blood Urea Nitrogen 36 mg/dl Creatinine 0.95 mg/dl Est Glomerular Filtrat Rate mL/min > 60 mL/min Glucose Level 163 mg/dl Calcium Level 9.5 mg/dl Total Bilirubin 0.4 mg/dl Direct Bilirubin 0.00 mg/dl Indirect Bilirubin 0.4 mg/dl Aspartate Amino Transf (AST/SGOT) 20 IU/L Alanine Aminotransferase (ALT/SGPT) 28 IU/L Alkaline Phosphatase 71 IU/L Troponin I 0.037 ng/ml Total Protein 7.0 g/dl Albumin 3.9 g/dl Globulin 3.10 g/dl Albumin/Globulin Ratio 1.25 Lipase 169 U/L Bedside Urine pH (LAB) 5.0 Bedside Urine Protein (LAB) 1+ Bedside Urine Glucose (UA) Negative Bedside Urine Ketones (LAB) 1+ Bedside Urine Blood Trace-lysed Bedside Urine Nitrite (LAB) Negative Bedside Urine Leukocyte Esterase (L Negative Current Medications Medications Dose Sig/Marvin Start Time Status Last (Trade) Ordered Route PRN Stop Time Admin Dose Reason Admin Meclizine 25 mg ONCE ONCE 09/12/18 DC 09/12/18 HCl PO 20:30 09/12/18 20:25 (Antivert) 20:31 IV Flush 3 ml PER 09/12/18 (NS 3 ml) PROTOCOL IV 23:30 Ondansetron 4 mg Q6H PRN 09/12/18 HCl (Zofran IV 23:30 Inj) NAUSEA/VOMITI NG 650 mg Q6H PRN 09/12/18 Acetaminophen PO .PAIN 1-3 23:30 (Tylenol OR TEMP Tab) Sodium 500 ml @ Q1H ONCE 09/12/18 09/12/18 Chloride 500 mls/hr IV 23:30 09/13/18 23:17 00:29 Discontinue ONCE ONCE 09/12/18 DC Miscellaneous current oral XX 23:30 09/12/18 sulfonylur... 23:31 Information (* Miscellaneous Pharmacy Order) Diagnostic 1 ea 02 XX 09/13/18 Test (Pha) 02:00 (Accu-Chek) ONCE ONCE 09/12/18 DC Miscellaneous HYPOGLYCEMIA XX 23:30 09/12/18 PROTOCOL 23:31 Information w... (* Miscellaneous Pharmacy Order) Insulin NOVOLOG WITH MEALS 09/13/18 Aspart *MILD* BEDTIME SC 08:00 (Novolog ALGORITHM Insulin Pen) Discontinue ONCE ONCE 09/12/18 DC Miscellaneous all previ... XX 23:30 09/12/18 23:31 Information (* Miscellaneous Pharmacy Order) 1 ea NOTE XX 09/12/18 Miscellaneous 23:30 Information Glucose 15 gm Q15M PRN 09/12/18 (Glutose) PO DECREASED 23:30 GLUCOSE Glucose 22.5 gm Q15M PRN 09/12/18 (Glutose) PO DECREASED 23:30 GLUCOSE Dextrose 25 ml Q15M PRN 09/12/18 (D50w IV DECREASED 23:30 Syringe) GLUCOSE Dextrose 50 ml Q15M PRN 09/12/18 (D50w IV DECREASED 23:30 Syringe) GLUCOSE Glucagon 1 mg Q15M PRN 09/12/18 (Glucagen) IM DECREASED 23:30 GLUCOSE Glucose 15 gm Q15M PRN 09/12/18 (Glutose) BUCCAL 23:30 DECREASED GLUCOSE Procedures/MDM Brain CT per radiologist negative for any acute finding EKG: Read by emergency physician Rate/Rhythm: Normal Sinus Rhythm 94 beats/min QRS, ST, T-waves: No ST elevation, no T inversion Impression: Normal EKG MEDICAL MAKING DECISION: The patient is presenting with acute dizziness, most likely due to acute gastrointestinal bleeding. His hemoglobin was 14.1 on December 16, 2017, today is only 10.7. Occult blood is pending The differential diagnoses considered include but are not limited to gastritis, peptic ulcer disease, esophageal varices, Catherine-Powell tear, carcinoma, polyp, hemorrhoid, fissure, diverticulosis, angiodysplasia. Departure Diagnosis: Primary Impression: GI bleed Additional Impression: Anemia Condition: Stable Comments I discussed the findings with the patient. I notified the patient with Dr. Moss at 11p via [place], who was made aware of the lab, the treatment, the patient condition. The patient is admitted to [facility] Disclaimer: Inadvertent spelling and grammatical errors are likely due to EHR/dictation software use and do not reflect on the overall quality of patient care. Also, please note that the electronic time recorded on this note does not necessarily reflect the actual time of the patient encounter. GRISEL BECKHAM MD Sep 12, 2018 19:48
[2018-09-12] MEDS ORDERED: MECLIZINE 12.5 MG TAB PO ONE (20:30)
[2018-09-12] MEDS ORDERED: GLUCAGON 1 MG INJ IM PRN (23:30)
[2018-09-12] MEDS ORDERED: ONDANSETRON 4 MG INJ IV PRN (23:30)
[2018-09-12] MEDS ORDERED: SOD CHLORIDE 0.9% 500 ML IV ONE (23:30)
[2018-09-12] MEDS ORDERED: DEXTROSE 50% 50 ML SYRINGE IV PRN ×2 (23:30)
[2018-09-12] MEDS ORDERED: NACL 0.9% 3 ML SYG IV SCH (23:30)
[2018-09-12] MEDS ORDERED: GLUCOSE GEL 15 GRAM TUBE BUCCAL PRN (23:30)
[2018-09-12] MEDS ORDERED: ACETAMINOPHEN 325 MG TAB PO PRN (23:30)
[2018-09-12] MEDS ORDERED: GLUCOSE GEL 15 GRAM TUBE PO PRN ×2 (23:30)
[2018-09-13 01:50] VITALS: Ht 170.2 cm; Wt 81.8 kg
[2018-09-13] MEDS: ACCU-CHEK XX SCH ×2 (02:00→08:31)
[2018-09-13 02:16] VITALS: BP 108/79; PULSE 102; RESP 20
--- NOTE | 2018-09-13 03:09 | HP ---
Date/Time of Note Date/Time of Note DATE: 09/13/18 TIME: 03:09 Assessment/Plan VTE Prophylaxis SCD applied (from Nsg): Yes Pharmacological prophylaxis: NA/contraindicated Pharm contraindication: low risk/ambulating Lines/Catheters IV Catheter Type (from Nrsg): Saline Lock Assessment/Plan Hospital Course This is a 58-year-old male being admitted to the [facility] floor for: #1 abdominal pain with GI bleed: Patient had an episode of hematemesis as well as possible melena. Will obtain a stool occult blood. CBC every 6 hours. He recently had a colonoscopy on 09/07. Will obtain a stat chest x-ray as well as KUB. Will place patient on Protonix and give a dose of Carafate. Will consult GI . Transfuse for hemoglobin less than 7.5. Clear liquid diet #2 dizziness: Patient apparently reported to the ED physician that he was dizzy however my encounter he does not report this. Nonetheless patient had a CT scan of the head that was negative. He received meclizine in the ED. We will continue to monitor. #3 Normocytic anemia anemia: Likely secondary to underlying GI bleed. BUN of 36. Will check a stool occult blood. Will trend CBC every 6 hours. Will check iron stores. #4 diabetes mellitus: We will check hemoglobin A 1C, resume home insulin, #5 hyperlipidemia: Continue statin #6 DVT GI prophylaxis: SCDs, Protonix Further treatment strategy will be implemented as per the clinical course Result Diagram: 09/12/18202809/12/182028 Results 24hrs Laboratory Tests Test 09/12/18 20:29 09/12/18 20:39 09/13/18 02:15 White Blood Count 11.3 #H Red Blood Count 3.55 L Hemoglobin 10.7 L Hematocrit 32.4 L Mean Corpuscular Volume 91.3 Mean Corpuscular Hemoglobin 30.1 Mean Corpuscular Hemoglobin Concent 33.0 Red Cell Distribution Width 13.1 Platelet Count 192 Mean Platelet Volume 11.1 H Immature Granulocytes % 0.400 Neutrophils % 64.1 Lymphocytes % 27.0 Monocytes % 7.3 Eosinophils % 0.8 Basophils % 0.4 Nucleated Red Blood Cells % 0.0 Immature Granulocytes # 0.040 H Neutrophils # 7.3 Lymphocytes # 3.1 H Monocytes # 0.8 Eosinophils # 0.1 Basophils # 0.0 Nucleated Red Blood Cells # 0.0 Sodium Level 139 Potassium Level 4.2 Chloride Level 105 Carbon Dioxide Level 22 Anion Gap 12 Blood Urea Nitrogen 36 H Creatinine 0.95 Est Glomerular Filtrat Rate mL/min > 60 Glucose Level 163 Calcium Level 9.5 Total Bilirubin 0.4 Direct Bilirubin 0.00 Indirect Bilirubin 0.4 Aspartate Amino Transf (AST/SGOT) 20 Alanine Aminotransferase (ALT/SGPT) 28 Alkaline Phosphatase 71 Troponin I 0.037 Total Protein 7.0 Albumin 3.9 Globulin 3.10 Albumin/Globulin Ratio 1.25 Lipase 169 Bedside Urine pH (LAB) 5.0 Bedside Urine Protein (LAB) 1+ H Bedside Urine Glucose (UA) Negative Bedside Urine Ketones (LAB) 1+ H Bedside Urine Blood Trace-lysed H Bedside Urine Nitrite (LAB) Negative Bedside Urine Leukocyte Esterase (L Negative Bedside Glucose 120 HPI/ROS Admit Date/Time Admit Date/Time Sep 12, 2018 at 22:59 Hx of Present Illness Chief complaint: Epigastric pain, GI bleed This is a 58-year-old male who presented to the emergency department with a GI bleed and symptoms of acute dizziness apparently. Upon my examination the patient he denied any symptoms of dizziness. He reported that he had a colonoscopy on Monday. And then on Monday he started experiencing abdominal pain he had an episode of bloody bright red vomitus x1. He also has reported that he had black stools, though he does report that he was using Pepto-Bismol. He denies any chest pain or shortness of breath. Denies any fevers. Allergies: NKDA Medications: See Apr Const: As per HPI Eyes : No pain discharge or redness or change in visual acuity ENT: No pain, sore throat, congestion, congestion, dysphagia or discharge Respiratory: No shortness of breath, cough, sputum, wheezing, or pleuritic pain Cardiovascular: No chest pain, palpitation, PND, or edema GI : As per HPI Genitourinary: No dysuria, hematuria, flank pain , discharge or CVA tenderness Musculoskeletal: No joint pain, back pain, neck pain, restricted range of motion in neck or joints Skin: No rash, bruising or hives Neuro: No headache, dizziness, syncope, seizure, focal weakness Endocrine: No polyuria, polydipsia, temperature intolerance Psych: No hallucination, depression, anxiety or suicidal ideation PMH/Family/Social Past Medical History Diabetes mitis, hyperlipidemia Medications Current Medications IV Flush (NS 3 ml) 3 ml PER PROTOCOL IV ; Start 09/12/18 at 23:30 Ondansetron HCl (Zofran Inj) 4 mg Q6H PRN IV NAUSEA/VOMITING; Start 09/12/18 at 23:30 Acetaminophen (Tylenol Tab) 650 mg Q6H PRN PO .PAIN 1-3 OR TEMP; Start 09/12/18 at 23:30 Diagnostic Test (Pha) (Accu-Chek) 1 ea 02 XX ; Start 09/13/18 at 02:00 Insulin Aspart (Novolog Insulin Pen) NOVOLOG *MILD* ALGORITHM WITH MEALS BEDTIME SC ; Start 09/13/18 at 08:00 Miscellaneous Information 1 ea NOTE XX ; Start 09/12/18 at 23:30 Glucose (Glutose) 15 gm Q15M PRN PO DECREASED GLUCOSE; Start 09/12/18 at 23:30 Glucose (Glutose) 22.5 gm Q15M PRN PO DECREASED GLUCOSE; Start 09/12/18 at 23:30 Dextrose (D50w Syringe) 25 ml Q15M PRN IV DECREASED GLUCOSE; Start 09/12/18 at 23:30 Dextrose (D50w Syringe) 50 ml Q15M PRN IV DECREASED GLUCOSE; Start 09/12/18 at 23:30 Glucagon (Glucagen) 1 mg Q15M PRN IM DECREASED GLUCOSE; Start 09/12/18 at 23:30 Glucose (Glutose) 15 gm Q15M PRN BUCCAL DECREASED GLUCOSE; Start 09/12/18 at 23:30 Coded Allergies: No Known Allergy (Unverified , 09/12/18) Past Surgical History Colonoscopy on 09/07/2018, L4-5 decompression w/ diskectomy complicated by dural tear s/p repair Family History Significant Family History: no pertinent family hx Social History Alcohol Use: none Smoking Status: Never smoker Drug Use: none Exam/Review of Systems Vital Signs Vitals Vital Signs Date Temp Pulse Resp B/P (MAP) Pulse Ox O2 O2 Flow FiO2 Time Delivery Rate 09/13/18 98.1 102 20 108/79 99 02:16 (89) 09/13/18 Room Air 01:20 Intake and Output 09/12/18 09/12/18 09/13/18 1515:00 23:00 07:00 IntakeIntake Total 500 ml BalanceBalance 500 ml Exam Exam General: Patient is a pleasant male currently lying in bed in no acute distress HEENT: Atraumatic, normocephalic. The pupils are equal, round and reactive. Extraocular motor are intact Neck: Supple with full range of motion. No rigidity or meningismus Chest: Nontender Lungs: Clear to auscultation bilaterally no crackles rales or wheezing Heart: Normal S1-S2, Regular rhythm and rate. No murmur, S3, or S4 Abdomen: Soft , mild tenderness palpation over the area above the umbilicus, epigastric region., nondistended , bowel sounds are present. No guarding no rebound tenderness , No masses or organomegaly. No costovertebral temporal angle mass Extremities: Normal to inspection, no edema no cyanosis Neurologic: Normal mental status, speech normal, cranial nerves II through XII are intact, motor and sensory are intact, Additional Comments PROCEDURE: CT Brain without contrast. CLINICAL INDICATION: Dizziness TECHNIQUE: A CT of the brain was performed on a multi-slice CT scanner utilizing axial imaging from the skull base through the vertex without IV con trast. Coronal and sagittal re-formations were created. Images were reviewed on a PACS workstation. The CTDIvol is 37 mGy and the DLP is 634 mGycm. DICOM images are available. 3-D reconstructions were not performed. Mild motion artifact. One or more of the following dose reduction techniques were utilized: 1.) Automated exposure control 2.) Adjustment of the mA +/- kV according to patient's size 3.) Use of iterative reconstruction technique. COMPARISON: None FINDINGS: The basilar cisterns, ventricular spaces and sulcal spaces are normal in size and configuration. There is no midline shift or other evidence of mass effect. There are no abnormal foci of increased attenuation in the brain parenchyma. No abnormal foci of diminished attenuation are present. Bone-windows show no lytic or blastic calvarial lesions. The right mastoid air cells are hypoplastic. The visualized paranasal sinuses and mastoid air cells are clear. IMPRESSION: 1. Unremarkable unenhanced computed tomograms of the head without evidence of intracranial hemorrhage, mass, or acute infarct. RPTAT:AAJJ Kwaku Madsen, Physician Date Time Electronically viewed and signed by Kwaku Madsen, Physician on 09/12/2018 21:53 GW/ CC: GRISEL BECKHAM MD [id number] BONNY NUR Sep 13, 2018 03:09
[2018-09-13] MEDS ORDERED: MAGNESIUM SULFATE 2 GM/50 ML 50 ML IVPB ONE (06:00)
[2018-09-13] MEDS ORDERED: SUCRALFATE 1 GM TAB PO ONE (06:00)
[2018-09-13] MEDS: PANTOPRAZOLE (EC) 40 MG TAB PO SCH (06:34)
[2018-09-13 07:00] VITALS: BP 118/71; PULSE 69; RESP 18
[2018-09-13] MEDS: INSULIN ASPART [NOVOLOG] 3 ML PEN SC SCH ×4 (08:14→21:00)
[2018-09-13 14:00] VITALS: BP 108/64; PULSE 75; RESP 18
--- NOTE | 2018-09-13 16:45 | PN ---
Date/Time of Note Date/Time of Note DATE: 09/13/18 TIME: 16:43 Assessment/Plan VTE Prophylaxis Risk score (from Ns)>0 risk: 2 SCD applied (from Ns): Yes Pharmacological prophylaxis: NA/contraindicated Pharm contraindication: bleeding Lines/Catheters IV C[facility]ter Type (from [facility]): Saline Lock Urinary Cath still in place: No Assessment/Plan Hospital Course SUBJECTIVE: Denies any abdominal pain. OBJECTIVE: Physical Exam General: Adequately build 58 year-old male lying in bed in no apparent distress. HEENT: Normocephalic, atraumatic. Eyes: Anicteric sclerae, conjunctivae clear. ENT: Nasal septum midline, oral mucosa moist. Neck supple, no JVD noticed. Respiratory: Bilaterally clear breath sounds. No use of accessory muscles of respiration. No adventitious breath sounds. Cardiovascular: S1, S2 heard. Regular rate and rhythm. Abdomen: Soft, nontender, and nondistended. Bowel sounds positive in all 4 quadrants. Genitourinary: Deferred. Extremities: No cyanosis, no clubbing, no edema. Peripheral pulses palpable. Neurologic: Cranial nerves II through XII grossly intact. The patient is awake, alert, and oriented. Skin: Normal skin turgor. No skin rashes. Labs & Vitals per chart ASSESSMENT & PLAN 58-year-old male with comorbidities including diabetes mellitus and dyslipidemia, who presented to the emergency room with chief complaint of hematemesis and melena with underlying normocytic, normochromic anemia, who was admitted to inpatient setting for further treatment and evaluation. 1. Gastrointestinal bleeding. Continue Protonix. Status post gastroenterology evaluation. Plan for esophagogastroduodenoscopy. Monitor H&H closely. Transfuse as needed. 2. Normocytic, normochromic anemia. Most probably secondary to #1. Management as per #1. 3. Diabetes mellitus type 2. Hemoglobin A1c 7.7. Continue sliding scale insulin. 4. Dyslipidemia. Continue statins. 5. Fluids, electrolytes, and nutrition. N.p.o. except for medications. IV fluids. 6. DVT prophylaxis. Bilateral SCDs. 7. Plan. Continue PPI. Monitor H&H closely. Transfuse as indicated. Await esophagogastroduodenoscopy. The patient was seen in collaboration with Dr. Sotelo. Result Diagram: 09/13/18 1444 09/13/18 0322 Results 24hrs Laboratory Tests Test 09/12/18 20:29 09/12/18 20:39 09/13/18 02:15 09/13/18 03:22 White Blood Count 11.3 #H 11.4 H Red Blood Count 3.55 L 3.30 L Hemoglobin 10.7 L 10.0 L Hematocrit 32.4 L 30.5 L Mean Corpuscular 91.3 92.4 Volume Mean Corpuscular 30.1 30.3 Hemoglobin Mean Corpuscular 33.0 32.8 Hemoglobin Concent Red Cell Distribution 13.1 13.3 Width Platelet Count 192 183 Mean Platelet Volume 11.1 H 11.4 H Immature Granulocytes 0.400 0.800 H % Neutrophils % 64.1 59.3 Lymphocytes % 27.0 31.3 Monocytes % 7.3 6.8 Eosinophils % 0.8 1.5 Basophils % 0.4 0.3 Nucleated Red Blood 0.0 0.0 Cells % Immature Granulocytes 0.040 H 0.090 H # Neutrophils # 7.3 6.8 Lymphocytes # 3.1 H 3.6 H Monocytes # 0.8 0.8 Eosinophils # 0.1 0.2 Basophils # 0.0 0.0 Nucleated Red Blood 0.0 0.0 Cells # Sodium Level 139 139 Potassium Level 4.2 3.7 Chloride Level 105 108 Carbon Dioxide Level 22 24 Anion Gap 12 7 Blood Urea Nitrogen 36 H 30 H Creatinine 0.95 0.74 Est Glomerular Filtrat > 60 > 60 Rate mL/min Glucose Level 163 149 Calcium Level 9.5 8.9 Total Bilirubin 0.4 0.3 Direct Bilirubin 0.00 0.00 Indirect Bilirubin 0.4 0.3 Aspartate Amino 20 20 Transf (AST/SGOT) Alanine 28 32 Aminotransferase (ALT/ SGPT) Alkaline Phosphatase 71 69 Troponin I 0.037 Total Protein 7.0 6.5 Albumin 3.9 3.5 Globulin 3.10 3.00 Albumin/Globulin Ratio 1.25 1.16 Lipase 169 Bedside Urine pH (LAB) 5.0 Bedside Urine Protein 1+ H (LAB) Bedside Urine Glucose Negative (UA) Bedside Urine Ketones 1+ H (LAB) Bedside Urine Blood Trace-lysed H Bedside Urine Nitrite Negative (LAB) Bedside Urine Negative Leukocyte Esterase (L Bedside Glucose 120 Prothrombin Time 13.3 Prothrombin Time Ratio 1.0 INR International 1.00 Normalized Ratio Activated 28.9 Partial Thromboplast Time Hemoglobin A1c 7.7 H Magnesium Level 1.6 L Triglycerides Level 189 H Cholesterol Level 99 L LDL Cholesterol, 38 Calculated HDL Cholesterol 23 L Cholesterol/HDL Ratio 4.3 Thyroid Stimulating 2.570 Hormone (TSH) Test 09/13/18 06:11 09/13/18 08:14 09/13/18 11:53 09/13/18 14:44 White Blood Count 11.4 H 9.7 Red Blood Count 3.13 L 3.15 L Hemoglobin 9.5 L 9.6 L Hematocrit 29.0 L 29.4 L Mean Corpuscular 92.7 93.3 Volume Mean Corpuscular 30.4 30.5 Hemoglobin Mean Corpuscular 32.8 32.7 Hemoglobin Concent Red Cell Distribution 13.3 13.3 Width Platelet Count 183 182 Mean Platelet Volume 11.2 H 11.0 H Immature Granulocytes 0.200 0.300 % Neutrophils % 57.1 50.6 Lymphocytes % 34.7 40.2 Monocytes % 6.7 7.4 Eosinophils % 1.0 1.2 Basophils % 0.3 0.3 Nucleated Red Blood 0.0 0.0 Cells % Immature Granulocytes 0.020 0.030 # Neutrophils # 6.5 4.9 Lymphocytes # 4.0 H 3.9 H Monocytes # 0.8 0.7 Eosinophils # 0.1 0.1 Basophils # 0.0 0.0 Nucleated Red Blood 0.0 0.0 Cells # Iron Level 35 Total Iron Binding 338 Capacity Percent Iron 10 L Saturation Ferritin 19.8 Bedside Glucose 180 159 Exam/Review of Systems Exam Vitals Vital Signs Date Temp Pulse Resp B/P (MAP) Pulse Ox O2 O2 Flow FiO2 Time Delivery Rate 09/13/18 98.2 75 18 108/64 97 Room Air 14:00 (79) Intake and Output 09/12/18 09/12/18 09/13/18 1414:59 22:59 06:59 IntakeIntake Total 500 ml BalanceBalance 500 ml Results Results 24hrs Laboratory Tests Test 09/12/18 20:29 09/12/18 20:39 09/13/18 02:15 09/13/18 03:22 White Blood Count 11.3 #H 11.4 H Red Blood Count 3.55 L 3.30 L Hemoglobin 10.7 L 10.0 L Hematocrit 32.4 L 30.5 L Mean Corpuscular 91.3 92.4 Volume Mean Corpuscular 30.1 30.3 Hemoglobin Mean Corpuscular 33.0 32.8 Hemoglobin Concent Red Cell Distribution 13.1 13.3 Width Platelet Count 192 183 Mean Platelet Volume 11.1 H 11.4 H Immature Granulocytes 0.400 0.800 H % Neutrophils % 64.1 59.3 Lymphocytes % 27.0 31.3 Monocytes % 7.3 6.8 Eosinophils % 0.8 1.5 Basophils % 0.4 0.3 Nucleated Red Blood 0.0 0.0 Cells % Immature Granulocytes 0.040 H 0.090 H # Neutrophils # 7.3 6.8 Lymphocytes # 3.1 H 3.6 H Monocytes # 0.8 0.8 Eosinophils # 0.1 0.2 Basophils # 0.0 0.0 Nucleated Red Blood 0.0 0.0 Cells # Sodium Level 139 139 Potassium Level 4.2 3.7 Chloride Level 105 108 Carbon Dioxide Level 22 24 Anion Gap 12 7 Blood Urea Nitrogen 36 H 30 H Creatinine 0.95 0.74 Est Glomerular Filtrat > 60 > 60 Rate mL/min Glucose Level 163 149 Calcium Level 9.5 8.9 Total Bilirubin 0.4 0.3 Direct Bilirubin 0.00 0.00 Indirect Bilirubin 0.4 0.3 Aspartate Amino 20 20 Transf (AST/SGOT) Alanine 28 32 Aminotransferase (ALT/ SGPT) Alkaline Phosphatase 71 69 Troponin I 0.037 Total Protein 7.0 6.5 Albumin 3.9 3.5 Globulin 3.10 3.00 Albumin/Globulin Ratio 1.25 1.16 Lipase 169 Bedside Urine pH (LAB) 5.0 Bedside Urine Protein 1+ H (LAB) Bedside Urine Glucose Negative (UA) Bedside Urine Ketones 1+ H (LAB) Bedside Urine Blood Trace-lysed H Bedside Urine Nitrite Negative (LAB) Bedside Urine Negative Leukocyte Esterase (L Bedside Glucose 120 Prothrombin Time 13.3 Prothrombin Time Ratio 1.0 INR International 1.00 Normalized Ratio Activated 28.9 Partial Thromboplast Time Hemoglobin A1c 7.7 H Magnesium Level 1.6 L Triglycerides Level 189 H Cholesterol Level 99 L LDL Cholesterol, 38 Calculated HDL Cholesterol 23 L Cholesterol/HDL Ratio 4.3 Thyroid Stimulating 2.570 Hormone (TSH) Test 09/13/18 06:11 09/13/18 08:14 09/13/18 11:53 09/13/18 14:44 White Blood Count 11.4 H 9.7 Red Blood Count 3.13 L 3.15 L Hemoglobin 9.5 L 9.6 L Hematocrit 29.0 L 29.4 L Mean Corpuscular 92.7 93.3 Volume Mean Corpuscular 30.4 30.5 Hemoglobin Mean Corpuscular 32.8 32.7 Hemoglobin Concent Red Cell Distribution 13.3 13.3 Width Platelet Count 183 182 Mean Platelet Volume 11.2 H 11.0 H Immature Granulocytes 0.200 0.300 % Neutrophils % 57.1 50.6 Lymphocytes % 34.7 40.2 Monocytes % 6.7 7.4 Eosinophils % 1.0 1.2 Basophils % 0.3 0.3 Nucleated Red Blood 0.0 0.0 Cells % Immature Granulocytes 0.020 0.030 # Neutrophils # 6.5 4.9 Lymphocytes # 4.0 H 3.9 H Monocytes # 0.8 0.7 Eosinophils # 0.1 0.1 Basophils # 0.0 0.0 Nucleated Red Blood 0.0 0.0 Cells # Iron Level 35 Total Iron Binding 338 Capacity Percent Iron 10 L Saturation Ferritin 19.8 Bedside Glucose 180 159 Medications Medication Current Medications IV Flush (NS 3 ml) 3 ml PER PROTOCOL IV ; Start 09/12/18 at 23:30 Ondansetron HCl (Zofran Inj) 4 mg Q6H PRN IV NAUSEA/VOMITING; Start 09/12/18 at 23:30 Acetaminophen (Tylenol Tab) 650 mg Q6H PRN PO .PAIN 1-3 OR TEMP; Start 09/12/18 at 23:30 Diagnostic Test (Pha) (Accu-Chek) 1 ea 02 XX ; Start 09/13/18 at 02:00 Insulin Aspart (Novolog Insulin Pen) NOVOLOG *MILD* ALGORITHM WITH MEALS BEDTIME SC Last administered on 09/13/18at 11:59; Admin Dose 1 UNIT; Start 09/13/18 at 08:00 Miscellaneous Information 1 ea NOTE XX ; Start 09/12/18 at 23:30 Glucose (Glutose) 15 gm Q15M PRN PO DECREASED GLUCOSE; Start 09/12/18 at 23:30 Glucose (Glutose) 22.5 gm Q15M PRN PO DECREASED GLUCOSE; Start 09/12/18 at 23:30 Dextrose (D50w Syringe) 25 ml Q15M PRN IV DECREASED GLUCOSE; Start 09/12/18 at 23:30 Dextrose (D50w Syringe) 50 ml Q15M PRN IV DECREASED GLUCOSE; Start 09/12/18 at 23:30 Glucagon (Glucagen) 1 mg Q15M PRN IM DECREASED GLUCOSE; Start 09/12/18 at 23:30 Glucose (Glutose) 15 gm Q15M PRN BUCCAL DECREASED GLUCOSE; Start 09/12/18 at 23:30 Pantoprazole (Protonix Tab) 40 mg DAILY@06 PO Last administered on 09/13/18at 06:34; Admin Dose 40 MG; Start 09/13/18 at 06:00 YOAV DE LEÓN NP Sep 13, 2018 16:45
--- NOTE | 2018-09-13 17:34 | CONS ---
DATE OF ADMISSION: 09/12/2018 DATE OF CONSULTATION: TYPE OF CONSULTATION: Gastroenterology. Dear Dr. Nur: Thank you for asking me to see Mr. Locke in GI consultation. HISTORY OF PRESENT ILLNESS: The patient is admitted with history of vomiting blood which he did yest erday. He has indigestion, heartburn. No history of passing blood from the rectum. Several days ag o, he had a colonoscopy done which was unremarkable. SOCIAL HISTORY: He has no history of alcoholism. PAST MEDICAL HISTORY: He has history of diabetes, anemia. MEDICATIONS: The patient does not take any nonsteroidal anti-inflammatory medications; however, plea se look at the [facility] for list of the medications. PHYSICAL EXAMINATION: GENERAL: The patient is a 58-year-old male who at this time is alert, well built. VITAL SIGNS: He is afebrile. CARDIOVASCULAR: Normal heart sounds. RESPIRATORY: Normal breath sounds. ABDOMEN: Showed soft abdomen with no palpable masses, no tenderness, no distention. LABORATORY WORKUP: Hemoglobin dropped to 9.5, hematocrit 29.0. Prothrombin time is 13.3, INR is 1.0 . DIAGNOSTIC DATA: KUB shows unremarkable findings. CLINICAL IMPRESSION: 1. Upper gastrointestinal bleeding. Rule out peptic ulcer disease, gastritis, arteriovenous malform ation. 2. History of diabetes. PLAN: I recommend upper endoscopy. Continue Protonix. Once again, doctor, thank you for this consultation. Dictated By: PEPE FUNEZ/NTS Conf#: [id number] DID#: [id number] CC: BONNY NUR MD;*EndCC*
[2018-09-13 20:35] VITALS: BP 135/77; PULSE 68; RESP 20
[2018-09-14] VITALS (13 sets, daily range): BP systolic 91–127; BP diastolic 58–73; PULSE 64–82; RESP 11–20
[2018-09-14] MEDS: PANTOPRAZOLE (EC) 40 MG TAB PO SCH (05:55)
[2018-09-14] MEDS ORDERED: INSULIN ASPART [NOVOLOG] 3 ML PEN SC SCH (09:00)
[2018-09-14] MEDS ORDERED: LIDOCAINE 2% (SDV) 5 ML INJ ONE (10:27)
[2018-09-14] MEDS ORDERED: PROPOFOL 20 ML ONE (10:27)
--- NOTE | 2018-09-14 10:44 | PREAC ---
Date/Time of Note Date/Time of Note DATE: 09/14/18 TIME: 10:43 Anesthesia Eval and Record Evaluation Time Pre-Procedure Interview DATE: 09/14/18 TIME: 10:43 Age 58 Sex male NPO: 8 hrs Preoperative diagnosis GI Bleed Planned procedure EGD Past Medical History Past Medical History: Includes Cardio: Dyslipidemia Endo: Diabetes (BG = 140) Heme: Anemia Surgery & Anesthesia Issues No known issue Meds Anticoagulation: No Beta Natasha within 24 hr: No Reason Beta Natasha not given: Pt. not on B-Natasha Reported Medications Insulin Lispro (Humalog Kwikpen U-100) 100 Unit/1 Ml Insuln.pen, 10 UNIT SQ WITH MEALS, EA 09/12/18 Aspirin* (Aspirin* EC) 81 Mg Tablet.dr, 81 MG PO DAILY, TAB 09/12/18 Insulin Glargine,Hum.rec.anlog (Basaglar Kwikpen U-100) 100 Unit/1 Ml Insuln.pen, 20 UNIT SC QHS, EA 06/18/18 Atorvastatin* (Atorvastatin*) 40 Mg Tablet, 40 MG PO QHS, #30 TAB 06/18/18 Metformin Hcl* (Metformin Hcl*) 1,000 Mg Tablet, 1000 MG PO WITH BREAKFAST DINNE, #60 TAB 06/18/18 Current Medications IV Flush (NS 3 ml) 3 ml PER PROTOCOL IV ; Start 09/12/18 at 23:30 Ondansetron HCl (Zofran Inj) 4 mg Q6H PRN IV NAUSEA/VOMITING; Start 09/12/18 at 23:30 Acetaminophen (Tylenol Tab) 650 mg Q6H PRN PO .PAIN 1-3 OR TEMP; Start 09/12/18 at 23:30 Diagnostic Test (Pha) (Accu-Chek) 1 ea 02 XX ; Start 09/13/18 at 02:00 Miscellaneous Information 1 ea NOTE XX ; Start 09/12/18 at 23:30 Glucose (Glutose) 15 gm Q15M PRN PO DECREASED GLUCOSE; Start 09/12/18 at 23:30 Glucose (Glutose) 22.5 gm Q15M PRN PO DECREASED GLUCOSE; Start 09/12/18 at 23:30 Dextrose (D50w Syringe) 25 ml Q15M PRN IV DECREASED GLUCOSE; Start 09/12/18 at 23:30 Dextrose (D50w Syringe) 50 ml Q15M PRN IV DECREASED GLUCOSE; Start 09/12/18 at 23:30 Glucagon (Glucagen) 1 mg Q15M PRN IM DECREASED GLUCOSE; Start 09/12/18 at 23:30 Glucose (Glutose) 15 gm Q15M PRN BUCCAL DECREASED GLUCOSE; Start 09/12/18 at 23:30 Pantoprazole (Protonix Tab) 40 mg DAILY@06 PO Last administered on 09/14/18at 05:55; Admin Dose 40 MG; Start 09/13/18 at 06:00 Insulin Aspart (Novolog Insulin Pen) NOVOLOG *MILD* ALGORI... Q4 SC Last administered on 09/14/18at 09:14; Admin Dose 1 UNIT; Start 09/14/18 at 09:00 Meds reviewed: Yes Allergies Coded Allergies: No Known Allergy (Unverified , 09/12/18) Allergies Reviewed: Yes Labs/Studies Labs Reviewed: Reviewed by anesthesiologist Result Diagram: 09/14/18 0538 09/14/18 0538 Laboratory Tests 09/14/18 05:38 test: N/A Studies: ECG (SR) Pre-procedure Exam Last vitals Vital Signs Date Temp Pulse Resp B/P (MAP) Pulse Ox O2 O2 Flow FiO2 Time Delivery Rate 09/14/18 97.8 72 18 122/64 98 08:00 (83) 09/13/18 Room Air 14:00 Airway: Adequate mouth opening, Adequate thyromental dist Mallampati: Mallampati II Teeth: Normal Lung: Normal Heart: Normal ASA Physical Status ASA physical status: 2 Emergency: E Planned Anesthetic General/MAC: MAC Pre-operative Attestations Prior to commencing anesthesia and surgery, the patient was re-evaluated, there was verification of: *The patient's identity *The results of appropriate recent lab work and preoperative vital signs *The above evaluation not changing prior to induction *Anesthetic plan, risk benefits, alternative and complications discussed with patient/family; questions answered; patient/family understands, accepts and wishes to proceed. NETTE YEAGER CRNA Sep 14, 2018 10:44
[2018-09-14] MEDS ORDERED: LABETALOL HCL 20MG INJ IV PRN (11:00)
[2018-09-14] MEDS ORDERED: FENTAnyl 50 MCG/ML VIAL IV PRN ×2 (11:00)
[2018-09-14] MEDS ORDERED: ONDANSETRON 4 MG INJ IV PRN (11:00)
--- NOTE | 2018-09-14 11:16 | PAC ---
Date/Time of Note Date/Time of Note DATE: 09/14/18 TIME: 11:15 Post-Anesthesia Notes Post-Anesthesia Note Last documented vital signs 94/62, 13, 99, 75, 97.5 Vital Signs Date Temp Pulse Resp B/P (MAP) Pulse Ox O2 O2 Flow FiO2 Time Delivery Rate 09/14/18 97.8 72 18 122/64 98 08:00 (83) 09/13/18 Room Air 14:00 Activity: WNL Respiratory function: WNL Cardiovascular function: WNL Mental status: Baseline Pain reasonably controlled: Yes Hydration appropriate: Yes Nausea/Vomiting absent: Yes NETTE YEAGER CRNA Sep 14, 2018 11:16
--- NOTE | 2018-09-14 11:45 | PN ---
Date/Time of Note Date/Time of Note DATE: 09/14/18 TIME: 11:42 Assessment/Plan VTE Prophylaxis Risk score (from Ns)>0 risk: 1 SCD applied (from Ns): Yes Pharmacological prophylaxis: NA/contraindicated Pharm contraindication: bleeding Lines/Catheters [facility] Saline Lock Urinary Cath still in place: No Assessment/Plan Hospital Course SUBJECTIVE: Denies any abdominal pain. OBJECTIVE: Physical Exam General: Adequately build 58 year-old male lying in bed in no apparent distress. HEENT: Normocephalic, atraumatic. Eyes: Anicteric sclerae, conjunctivae clear. ENT: Nasal septum midline, oral mucosa moist. Neck supple, no JVD noticed. Respiratory: Bilaterally clear breath sounds. No use of accessory muscles of respiration. No adventitious breath sounds. Cardiovascular: S1, S2 heard. Regular rate and rhythm. Abdomen: Soft, nontender, and nondistended. Bowel sounds positive in all 4 quadrants. Genitourinary: Deferred. Extremities: No cyanosis, no clubbing, no edema. Peripheral pulses palpable. Neurologic: Cranial nerves II through XII grossly intact. The patient is awake, alert, and oriented. Skin: Normal skin turgor. No skin rashes. Labs & Vitals per chart ASSESSMENT & PLAN 58-year-old male with comorbidities including diabetes mellitus and dyslipidemia, who presented to the emergency room with chief complaint of hematemesis and melena with underlying normocytic, normochromic anemia, who was admitted to inpatient setting for further treatment and evaluation. 1. Gastrointestinal bleeding. S/P esophagogastroduodenoscopy on 09/14/2018 that showed long segment Villegas's, esophageal ulcer, and antral gastritis. Continue PPI. Monitor H&H closely. Transfuse as needed. 2. Normocytic, normochromic anemia. Most probably secondary to #1. Management as per #1. 3. Diabetes mellitus type 2. Hemoglobin A1c 7.7. Continue sliding scale insulin. 4. Dyslipidemia. Continue statins. 5. Fluids, electrolytes, and nutrition. Carbohydrate controlled diet. 6. DVT prophylaxis. Bilateral SCDs. 7. Plan. Continue PPI. Monitor H&H closely. Transfuse as indicated. Await clinical improvement before discharging the patient home. The patient was seen in collaboration with Dr. Sotelo. Result Diagram: 09/14/18 0538 09/14/18 0538 Results 24hrs Laboratory Tests Test 09/13/18 11:53 09/13/18 14:44 09/13/18 17:23 09/13/18 20:47 Bedside Glucose 159 134 White Blood Count 9.7 9.3 Red Blood Count 3.15 L 3.34 L Hemoglobin 9.6 L 10.2 L Hematocrit 29.4 L 31.0 L Mean Corpuscular Volume 93.3 92.8 Mean Corpuscular 30.5 30.5 Hemoglobin Mean Corpuscular 32.7 32.9 Hemoglobin Concent Red Cell Distribution 13.3 13.2 Width Platelet Count 182 130 #L Mean Platelet Volume 11.0 H 11.8 H Immature Granulocytes % 0.300 0.300 Neutrophils % 50.6 Lymphocytes % 40.2 Monocytes % 7.4 Eosinophils % 1.2 Basophils % 0.3 Nucleated Red Blood 0.0 0.0 Cells % Immature Granulocytes # 0.030 0.030 Neutrophils # 4.9 Lymphocytes # 3.9 H Monocytes # 0.7 Eosinophils # 0.1 Basophils # 0.0 Nucleated Red Blood 0.0 Cells # Test 09/13/18 21:44 09/14/18 05:38 09/14/18 07:44 09/14/18 09:10 Bedside Glucose 134 149 148 White Blood Count 9.1 Red Blood Count 3.20 L Hemoglobin 9.6 L Hematocrit 29.9 L Mean Corpuscular Volume 93.4 Mean Corpuscular 30.0 Hemoglobin Mean Corpuscular 32.1 Hemoglobin Concent Red Cell Distribution 13.4 Width Platelet Count 180 # Mean Platelet Volume 11.2 H Immature Granulocytes % 0.300 Neutrophils % 51.0 Lymphocytes % 39.0 Monocytes % 7.6 Eosinophils % 1.8 Basophils % 0.3 Nucleated Red Blood 0.0 Cells % Immature Granulocytes # 0.030 Neutrophils # 4.7 Lymphocytes # 3.6 H Monocytes # 0.7 Eosinophils # 0.2 Basophils # 0.0 Nucleated Red Blood 0.0 Cells # Sodium Level 141 Potassium Level 4.0 Chloride Level 109 Carbon Dioxide Level 25 Anion Gap 7 Blood Urea Nitrogen 15 # Creatinine 0.74 Est Glomerular Filtrat > 60 Rate mL/min Glucose Level 128 Calcium Level 8.4 Phosphorus Level 3.4 Magnesium Level 2.1 Total Bilirubin 0.5 Direct Bilirubin 0.00 Indirect Bilirubin 0.5 Aspartate Amino 53 #H Transf (AST/SGOT) Alanine 41 Aminotransferase (ALT/SG PT) Alkaline Phosphatase 71 Total Protein 6.4 Albumin 3.6 Globulin 2.80 Albumin/Globulin Ratio 1.28 Test 09/14/18 10:28 Bedside Glucose 167 Exam/Review of Systems Exam Vitals Vital Signs Date Temp Pulse Resp B/P (MAP) Pulse Ox O2 O2 Flow FiO2 Time Delivery Rate 09/14/18 82 14 92/62 (72) 99 Mask 10.0 11:10 09/14/18 97.6 10:35 Intake and Output 09/13/18 09/13/18 09/14/18 1515:00 23:00 07:00 IntakeIntake Total 650 ml OutputOutput Total 400 ml 300 ml BalanceBalance 250 ml -300 ml Results Results 24hrs Laboratory Tests Test 09/13/18 11:53 09/13/18 14:44 09/13/18 17:23 09/13/18 20:47 Bedside Glucose 159 134 White Blood Count 9.7 9.3 Red Blood Count 3.15 L 3.34 L Hemoglobin 9.6 L 10.2 L Hematocrit 29.4 L 31.0 L Mean Corpuscular Volume 93.3 92.8 Mean Corpuscular 30.5 30.5 Hemoglobin Mean Corpuscular 32.7 32.9 Hemoglobin Concent Red Cell Distribution 13.3 13.2 Width Platelet Count 182 130 #L Mean Platelet Volume 11.0 H 11.8 H Immature Granulocytes % 0.300 0.300 Neutrophils % 50.6 Lymphocytes % 40.2 Monocytes % 7.4 Eosinophils % 1.2 Basophils % 0.3 Nucleated Red Blood 0.0 0.0 Cells % Immature Granulocytes # 0.030 0.030 Neutrophils # 4.9 Lymphocytes # 3.9 H Monocytes # 0.7 Eosinophils # 0.1 Basophils # 0.0 Nucleated Red Blood 0.0 Cells # Test 09/13/18 21:44 09/14/18 05:38 09/14/18 07:44 09/14/18 09:10 Bedside Glucose 134 149 148 White Blood Count 9.1 Red Blood Count 3.20 L Hemoglobin 9.6 L Hematocrit 29.9 L Mean Corpuscular Volume 93.4 Mean Corpuscular 30.0 Hemoglobin Mean Corpuscular 32.1 Hemoglobin Concent Red Cell Distribution 13.4 Width Platelet Count 180 # Mean Platelet Volume 11.2 H Immature Granulocytes % 0.300 Neutrophils % 51.0 Lymphocytes % 39.0 Monocytes % 7.6 Eosinophils % 1.8 Basophils % 0.3 Nucleated Red Blood 0.0 Cells % Immature Granulocytes # 0.030 Neutrophils # 4.7 Lymphocytes # 3.6 H Monocytes # 0.7 Eosinophils # 0.2 Basophils # 0.0 Nucleated Red Blood 0.0 Cells # Sodium Level 141 Potassium Level 4.0 Chloride Level 109 Carbon Dioxide Level 25 Anion Gap 7 Blood Urea Nitrogen 15 # Creatinine 0.74 Est Glomerular Filtrat > 60 Rate mL/min Glucose Level 128 Calcium Level 8.4 Phosphorus Level 3.4 Magnesium Level 2.1 Total Bilirubin 0.5 Direct Bilirubin 0.00 Indirect Bilirubin 0.5 Aspartate Amino 53 #H Transf (AST/SGOT) Alanine 41 Aminotransferase (ALT/SG PT) Alkaline Phosphatase 71 Total Protein 6.4 Albumin 3.6 Globulin 2.80 Albumin/Globulin Ratio 1.28 Test 09/14/18 10:28 Bedside Glucose 167 Medications Medication Current Medications IV Flush (NS 3 ml) 3 ml PER PROTOCOL IV ; Start 09/12/18 at 23:30 Ondansetron HCl (Zofran Inj) 4 mg Q6H PRN IV NAUSEA/VOMITING; Start 09/12/18 at 23:30 Acetaminophen (Tylenol Tab) 650 mg Q6H PRN PO .PAIN 1-3 OR TEMP; Start 09/12/18 at 23:30 Diagnostic Test (Pha) (Accu-Chek) 1 ea 02 XX ; Start 09/13/18 at 02:00 Miscellaneous Information 1 ea NOTE XX ; Start 09/12/18 at 23:30 Glucose (Glutose) 15 gm Q15M PRN PO DECREASED GLUCOSE; Start 09/12/18 at 23:30 Glucose (Glutose) 22.5 gm Q15M PRN PO DECREASED GLUCOSE; Start 09/12/18 at 23:30 Dextrose (D50w Syringe) 25 ml Q15M PRN IV DECREASED GLUCOSE; Start 09/12/18 at 23:30 Dextrose (D50w Syringe) 50 ml Q15M PRN IV DECREASED GLUCOSE; Start 09/12/18 at 23:30 Glucagon (Glucagen) 1 mg Q15M PRN IM DECREASED GLUCOSE; Start 09/12/18 at 23:30 Glucose (Glutose) 15 gm Q15M PRN BUCCAL DECREASED GLUCOSE; Start 09/12/18 at 23:30 Pantoprazole (Protonix Tab) 40 mg DAILY@06 PO Last administered on 09/14/18at 05:55; Admin Dose 40 MG; Start 09/13/18 at 06:00 Insulin Aspart (Novolog Insulin Pen) NOVOLOG *MILD* ALGORI... Q4 SC Last administered on 09/14/18at 09:14; Admin Dose 1 UNIT; Start 09/14/18 at 09:00 Fentanyl (Sublimaze) 25 mcg PACU ORDER PRN IV MILD PAIN 1-3; Start 09/14/18 at 11:00; Stop 09/14/18 at 17:00 Fentanyl (Sublimaze) 50 mcg PACU ORDER PRN IV MOD PAIN 4-6; Start 09/14/18 at 11:00; Stop 09/14/18 at 17:00 Ondansetron HCl (Zofran Inj) 4 mg PACU ORDER PRN IV NAUSEA/VOMITING; Start 09/14/18 at 11:00; Stop 09/14/18 at 17:00 Labetalol HCl (Labetalol) 5 mg PACU ORDER PRN IV HIGH BLOOD PRESSURE; Start 09/14/18 at 11:00; Stop 09/14/18 at 17:00 YOAV DE LEÓN NP Sep 14, 2018 11:45
[2018-09-14] MEDS: INSULIN ASPART [NOVOLOG] 3 ML PEN SC SCH ×3 (12:22→20:30)
[2018-09-15 02:00] VITALS: BP 104/59; PULSE 69; RESP 17
[2018-09-15] MEDS: ACCU-CHEK XX SCH (02:00)
[2018-09-15] MEDS: PANTOPRAZOLE (EC) 40 MG TAB PO SCH (06:52)
[2018-09-15 08:00] VITALS: BP 110/69; PULSE 69; RESP 17
[2018-09-15] MEDS: INSULIN ASPART [NOVOLOG] 3 ML PEN SC SCH ×2 (08:22→12:23)
[2018-09-15 14:00] VITALS: BP 122/74; PULSE 74; RESP 16
--- NOTE | 2018-09-15 16:02 | PDOCDIS ---
Discharge Instructions CONDITION [id number] Patient Condition: [id number] Stable HOME CARE INSTRUCTIONS: [id number] Special Diet: [id number] Carbohydrate controlled, low-cholesterol diet. FOLLOW UP/APPOINTMENTS Follow-up Plan David Rushing MD Specialty: Gastroenterology Office Address [address] [place], [place] [id number] Office OTHER ORDERS: Other Orders: 1. Resume home medications. Stop taking aspirin at least for a few months. 2. Complete the course of Protonix. 3. Take a low-cholesterol, low carbohydrate diet. 4. Please follow-up with Dr. Rushing in 1 month. 5. Please go to the nearest emergency room if you have significant abdominal pain, persistent nausea/vomiting, blood in stool, or blood in vomiting. YOAV DE LEÓN NP Sep 15, 2018 16:02
--- NOTE | 2018-09-15 16:38 | DS ---
Date/Time of Note Date/Time of Note DATE: 09/15/18 TIME: 16:36 Discharge Summary Admission/Discharge Info Admit Date/Time Sep 12, 2018 at 22:59 Discharge Date/Time Discharge Diagnosis 1. Gastrointestinal bleeding. S/P esophagogastroduodenoscopy on 09/14/2018 that showed long segment Villegas's, esophageal ulcer, and antral gastritis. 2. Anemia of acute blood loss. 3. Diabetes mellitus type 2. Hemoglobin A1c 7.7. 4. Dyslipidemia. Patient Condition: Stable Consults 1. David Rushing MD, Gastroenterology. Procedures Esophagogastroduodenoscopy on 09/14/2018 1. Long segment Villegas's. 2. Distal esophageal ulcer 5 mm. 3. Hiatal hernia. 4. Antral gastritis. Hx of Present Illness This is a 58-year-old male with comorbidities including diabetes mellitus and dyslipidemia, who presented to the emergency room with chief complaint of hematemesis and melena with underlying normocytic, normochromic anemia, who was admitted to inpatient setting for further treatment and evaluation. Hospital Course The patient was admitted to inpatient setting. A gastroenterology consult was obtained. The patient was started on proton pump inhibitor therapy. The pa milagros's H&H was monitored closely. The patient's H&H remained stable and did not require any blood transfusions. The patient underwent an esophagogastroduodenoscopy on 09/14/2018 that showed long segment Villegas's, esophageal ulcer, antral gastritis, and hiatal hernia. Gastroenterology recommended to continue the patient on proton pump inhibitors for at least 3 months. Pathology from the biopsy is pending at this time. Meanwhile, the patient was started on a clear liquid diet and the patient's diet was advanced as tolerated to a regular consistency diet without any significant gastrointestinal symptoms. The patient did not have any more episodes of hematemesis or melena. Therefore, the patient will be discharged home, to be followed up with outpatient gastroenterology. Patient's chronic problems include diabetes mellitus type 2. The patient's hemoglobin A1c was found to be 7.7. Patient was continued on sliding scale insulin with well-controlled blood sugars throughout the hospital course. He has underlying dyslipidemia. He was maintained on statins. The patient's fasting lipid panel was showing suboptimal HDL and high triglycerides. Discharge Instructions 1. Resume home medications. Stop taking aspirin at least for a few months. 2. Complete the course of Protonix. 3. Take a low-cholesterol, low carbohydrate diet. 4. Please follow-up with Dr. Rushing in 1 month. 5. Please go to the nearest emergency room if you have significant abdominal pain, persistent nausea/vomiting, blood in stool, or blood in vomiting. Patient verbalized understanding of his discharge instructions. At this time I would like to thank Dr. Rushing for seeing the patient, doing the necessary procedures, and providing clinical recommendations. The patient was seen in collaboration with Dr. Sotelo. Home Meds Active Scripts Pantoprazole* (Protonix*) 40 Mg Tablet., 40 MG PO BID for 7 Days, #44 TAB 2 Refills Protonix 40 mg PO BID X 7 days (#14), then Protonix 40 mg po. Daily for 30 days (#30) 2 refills for 40 mg daily for 30 days Prov:YOAV DE LEÓN [employer] 09/15/18 Reported Medications Insulin Lispro (Humalog Kwikpen U-100) 100 Unit/1 Ml Insuln.pen, 10 UNIT SQ WITH MEALS, EA 09/12/18 Insulin Glargine,Hum.rec.anlog (Basaglar Kwikpen U-100) 100 Unit/1 Ml Insuln.pen, 20 UNIT SC QHS, EA 06/18/18 Atorvastatin* (Atorvastatin*) 40 Mg Tablet, 40 MG PO QHS, #30 TAB 06/18/18 Metformin Hcl* (Metformin Hcl*) 1,000 Mg Tablet, 1000 MG PO WITH BREAKFAST DINNE, #60 TAB 06/18/18 Discontinued Reported Medications Aspirin* (Aspirin* EC) 81 Mg Tablet., 81 MG PO DAILY, TAB 09/12/18 Follow-up Plan David Rushing MD Specialty: Gastroenterology Office Address [address] [place], [place] [id number] Office Primary Care Provider Care Physician No Primary Time spent on discharge: > 30 minutes Pending Labs Laboratory Tests Test 09/14/18 17:18 09/14/18 20:23 09/15/18 02:20 09/15/18 05:50 Bedside 228 225 146 Glucose mg/dL (70-220) mg/dL (70-220) mg/dL (70-220) White Blood 9.1 Count 10^3/ul (4.8-1 0.8) Red Blood 3.09 Count 10^6/ul (4.70- 6.10) Hemoglobin 9.3 g/dl (14.0-18. 0) Hematocrit 28.9 % (42.0-52.0) Mean 93.5 Corpuscular fl (82.0-101.0 Volume ) Mean 30.1 Corpuscular pg (29.0-33.0) Hemoglobin Mean 32.2 Corpuscular g/dl (32.0-37. Hemoglobin Conc 0) ent Red Cell 13.3 Distribution % (11.5-14.5) Width Platelet Count 184 10^3/UL (140-4 15) Mean Platelet 11.2 Volume fl (7.4-10.4) Immature 0.300 Granulocytes % % (0.001-0.429 ) Neutrophils % 53.4 % (39.0-77.0) Lymphocytes % 36.3 % (15.0-51.0) Monocytes % 7.8 % (0.0-11.0) Eosinophils % 1.9 % (0.0-7.0) Basophils % 0.3 % (0.0-2.0) Nucleated Red 0.0 Blood Cells % /100WBC (0.0-0 .0) Immature 0.030 Granulocytes # 10^3/ul (0.0-0 .031) Neutrophils # 4.8 10^3/ul (1.6-7 .5) Lymphocytes # 3.3 10^3/ul (0.8-2 .9) Monocytes # 0.7 10^3/ul (0.3-0 .9) Eosinophils # 0.2 10^3/ul (0.0-0 .5) Basophils # 0.0 10^3/ul (0.0-0 .1) Nucleated Red 0.0 Blood Cells # 10^3/ul (0.0-0 .0) Sodium Level 141 mmol/L (135-14 4) Potassium 4.1 Level mmol/L (3.5-5. 1) Chloride Level 108 mmol/L (97-110 ) Carbon Dioxide 26 Level mmol/L (21-31) Anion Gap 7 (5-13) Blood Urea 17 Nitrogen mg/dl (7-20) Creatinine 0.82 mg/dl (0.61-1. 24) Est Glomerular > 60 Filtrat mL/min (>60) Rate mL/min Glucose Level 171 mg/dl (70-220) Calcium Level 8.7 mg/dl (8.4-10. 2) Phosphorus 3.7 Level mg/dl (2.5-4.9 ) Magnesium 2.0 Level mg/dl (1.7-2.5 ) Total 0.3 Bilirubin mg/dl (0.2-1.3 ) Direct 0.00 Bilirubin mg/dl (0.00-0. 20) Indirect 0.3 Bilirubin mg/dl (0-1.1) Aspartate Amino 38 Transf (AST/SGO IU/L (15-46) T) Alanine 46 Aminotransferas IU/L (13-69) e (ALT/SGPT) Alkaline 69 Phosphatase IU/L (42-121) Total Protein 6.3 g/dl (6.1-8.1) Albumin 3.6 g/dl (3.3-4.9) Globulin 2.70 g/dl (1.3-3.2) Albumin/Globuli 1.33 n Ratio Test 09/15/18 08:16 09/15/18 12:19 Bedside 177 202 Glucose mg/dL (70-220) mg/dL (70-220) YOAV DE LEÓN NP Sep 15, 2018 16:38
== END 2018-09-15 17:12 | disposition home or self-care (01) | DRG 378 ==
LOC: E/R 19:14 → PP2 22:59
PROVIDERS: ADMIT Family Medicine; ATTEND Family Medicine
PROC: 0DB68ZX Excision of Stomach, Via Natural or Artificial Opening Endoscopic, Diagnostic (ICD-10-PCS; 2018-09-14)
PROC: 0DB58ZX Excision of Esophagus, Via Natural or Artificial Opening Endoscopic, Diagnostic (ICD-10-PCS; principal; 2018-09-14 13:00)
DX: K29.71 Gastritis, unspecified, with bleeding (principal); D62 Acute posthemorrhagic anemia; K22.11 Ulcer of esophagus with bleeding; E11.9 Type 2 diabetes mellitus without complications; E78.5 Hyperlipidemia, unspecified
CPT/HCPCS: 36415; 70450; 71045; 74018; 80053; 80061; 81003; 82728; 82962; 83036; 83540; 83690; 83735; 84100; 84443; 84484; 85025; 85610; 85730; 86850; 86900; 86901; 88305; 88312; 88313; 93005; J1815; J3475; J7040